=== PATIENT | male | born 1930 | race Caucasian/White ===

== ENCOUNTER 2019-06-15 16:37 | Observation (INO) | payer BC, MEDICAID ==
[~2019-06-15] VITALS: Ht 182.9 cm; Wt 86.6 kg
[2019-06-15 17:21] LABS: HEMATOCRIT 26 % (40-54); HEMOGLOBIN 8.5 G/DL (13.3-17.7); MEAN CORPUSCULAR HEMOGLOBIN 30 PG (25-34); MEAN CORPUSCULAR HGB CONC 33 G/DL (32-36); MEAN CORPUSCULAR VOLUME 92 FL (80-99); MEAN PLATELET VOLUME 9.2 FL (7.4-10.4); PLATELET COUNT 94 10^3/uL (130-400); RED CELL DISTRIBUTION WIDTH 13.4 % (10.0-14.5); WHITE BLOOD COUNT 3.5 10^3/uL (4.3-11.0)
[2019-06-15 17:22] LABS: BASOPHILS % (AUTO) 0 % (0-10); EOSINOPHILS # (AUTO) 0.3 10^3/uL (0.0-0.3); EOSINOPHILS % (AUTO) 9 % (0-10); LYMPHOCYTES # (AUTO) 1.3 X 10^3 (1.0-4.0); LYMPHOCYTES % (AUTO) 37 % (12-44); MONOCYTES # (AUTO) 0.4 X 10^3 (0.0-1.0); MONOCYTES % (AUTO) 11 % (0-12); NEUTROPHILS # (AUTO) 1.5 X 10^3 (1.8-7.8); NEUTROPHILS % (AUTO) 41 % (42-75)
--- NOTE | 2019-06-15 17:26 | ED General ---
General Chief Complaint: Altered Mental Status Stated Complaint: LETHARGY Nursing Triage Note: Family reports patient has had a decline in functioning and increase in lethargy over the last two weeks. Patient had his fentanyl patch and klonopin dosage increased at the beginning of June to control agitation and pain, but these medications were decreased on June 12 d/t lethargy. Daughter states patient is newly incontinent and has stopped feeding himself, intermittently lethargic/unresponsive. Nursing Sepsis Screen: No Definite Risk Source of Information: Patient, EMS, Family Exam Limitations: No Limitations History of Present Illness Date Seen by Provider: Jun 15, 2019 Time Seen by Provider: 17:00 Initial Comments see nurses note above. gradual decline of functioning, although intermittent. Episodes of being unresponsive/ somnulent and diminished ability to feed himself. New medications added for pain and agitation. Allergies and Home Medications Allergies Coded Allergies: acetaminophen (Verified Allergy, Unknown, 06/15/19) celecoxib (Verified Allergy, Unknown, 06/15/19) codeine (Verified Allergy, Unknown, 06/15/19) Patient Home Medication List Home Medication List Reviewed: Yes Review of Systems Review of Systems Constitutional: malaise, weakness Respiratory: No cough, No dyspnea on exertion Cardiovascular: No chest pain, No edema Gastrointestinal: No abdominal pain, No nausea, No vomiting Musculoskeletal: joint pain Skin: No change in color, No rash Psychiatric/Neurological: Denies Seizure, Denies Tremors; Weakness Past Vdnqegb-Scsdkp-Bezqnc Hx Past Med/Social Hx: Reviewed Nursing Past Med/Soc Hx Patient Social History Alcohol Use: Denies Use Recreational Drug Use: No Smoking Status: Never a Smoker 2nd Hand Smoke Exposure: No Recent Foreign Travel: No Contact w/Someone Who Travel: No Recent Infectious Disease Expo: No Recent Hopitalizations: No Physical Abuse: No Sexual Abuse: No Mistreated: No Fear: No Seasonal Allergies Seasonal Allergies: No Past Medical History Surgeries: No Respiratory: No Cardiac: Yes Hypertension Neurological: Yes Stroke Genitourinary: No (urinary retention) Gastrointestinal: Yes Gastroesophageal Reflux Musculoskeletal: Yes (Hemiplegia and hemiparesis left side) Endocrine: No HEENT: No Cancer: No Psychosocial: Yes Depression Integumentary: No Physical Exam Vital Signs Vital Signs - First Documented 06/15/19 16:48 Temp 36.2 Pulse 63 Resp 20 B/P (MAP) 137/48 (77) Pulse Ox 94 O2 Delivery Room Air Capillary Refill : Less Than 3 Seconds Height, Weight, BMI Height: '" Weight: lbs. oz. kg; 34.00 BMI Method: General Appearance: No Apparent Distress, WD/WN; No Anxious, No Chronically ill HEENT: TMs Normal, Pharynx Normal Neck: Normal Inspection, Non Tender, Supple; No JVD Respiratory: Chest Non Tender, Lungs Clear Cardiovascular: Regular Rate, Rhythm, No Edema, No Gallop, No JVD, No Murmur Gastrointestinal: No Organomegaly, Non Tender, Soft Rectal: Normal Exam, Normal Rectal Tone, Heme Positive Stool (faint) Extremity: Normal Capillary Refill, Non Tender, No Calf Tenderness Neurologic/Psychiatric: Alert, No Motor/Sensory Deficits, Normal Mood/Affect Skin: Normal Color, Warm/Dry Focused Exam Lactate Level 06/15/19 17:00: Lactic Acid Level 0.70 Lactic Acid Level Laboratory Tests Test 06/15/19 17:00 Lactic Acid Level 0.70 MMOL/L (0.50-2.00) Progress/Results/Core Measures Suspected Sepsis Recent Fever Within 48 Hours: No Infection Criteria Present: None New/Unexplained Altered Menta: Yes Sepsis Screen: No Definite Risk SIRS Temperature: Pulse: 63 Respiratory Rate: 20 Laboratory Tests 06/15/19 17:00: White Blood Count 3.5L Blood Pressure 137 /48 Mean: 77 06/15/19 17:00: Lactic Acid Level 0.70 Laboratory Tests 06/15/19 17:00: Creatinine 0.60, Platelet Count 94L, Total Bilirubin 0.2 Results/Orders Lab Results Laboratory Tests Test 06/15/19 15:00 06/15/19 17:00 06/15/19 17:35 Range/Units Beta-Hydroxybutyrate (Chem panel) 0.06 0.00-0.27 MMOL/L White Blood Count 3.5 L 4.3-11.0 10^3/uL Red Blood Count 2.83 L 4.35-5.85 10^6/uL Hemoglobin 8.5 L 13.3-17.7 G/DL Hematocrit 26 L 40-54 % Mean Corpuscular Volume 92 80-99 FL Mean Corpuscular Hemoglobin 30 25-34 PG Mean Corpuscular Hemoglobin Concent 33 32-36 G/DL Red Cell Distribution Width 13.4 10.0-14.5 % Platelet Count 94 L 130-400 10^3/uL Mean Platelet Volume 9.2 7.4-10.4 FL Neutrophils (%) (Auto) 41 L 42-75 % Lymphocytes (%) (Auto) 37 12-44 % Monocytes (%) (Auto) 11 0-12 % Eosinophils (%) (Auto) 9 0-10 % Basophils (%) (Auto) 0 0-10 % Neutrophils # (Auto) 1.5 L 1.8-7.8 X 10^3 Lymphocytes # (Auto) 1.3 1.0-4.0 X 10^3 Monocytes # (Auto) 0.4 0.0-1.0 X 10^3 Eosinophils # (Auto) 0.3 0.0-0.3 10^3/uL Basophils # (Auto) 0.0 0.0-0.1 10^3/uL Sodium Level 145 135-145 MMOL/L Potassium Level 2.7 L 3.6-5.0 MMOL/L Chloride Level 119 H 98-107 MMOL/L Carbon Dioxide Level 19 L 21-32 MMOL/L Anion Gap 7 5-14 MMOL/L Blood Urea Nitrogen 15 7-18 MG/DL Creatinine 0.60 0.60-1.30 MG/DL Estimat Glomerular Filtration Rate > 60 BUN/Creatinine Ratio 25 Glucose Level 72 70-105 MG/DL Lactic Acid Level 0.70 0.50-2.00 MMOL/L Calcium Level 5.7 *L 8.5-10.1 MG/DL Corrected Calcium 7.2 L 8.5-10.1 MG/DL Phosphorus Level 1.8 L 2.3-4.7 MG/DL Magnesium Level 1.2 L 1.6-2.4 MG/DL Total Bilirubin 0.2 0.1-1.0 MG/DL Aspartate Amino Transf (AST/SGOT) 7 5-34 U/L Alanine Aminotransferase (ALT/SGPT) 7 0-55 U/L Alkaline Phosphatase 40 40-136 U/L Total Protein 3.4 L 6.4-8.2 GM/DL Albumin 2.1 L 3.2-4.5 GM/DL Urine Color YELLOW Urine Clarity CLEAR Urine pH 6.0 5-9 Urine Specific [place] 1.025 H 1.016-1.022 Urine Protein NEGATIVE NEGATIVE Urine Glucose (UA) NEGATIVE NEGATIVE Urine Ketones NEGATIVE NEGATIVE Urine Nitrite NEGATIVE NEGATIVE Urine Bilirubin NEGATIVE NEGATIVE Urine Urobilinogen 2.0 NORMAL MG/DL Urine Leukocyte Esterase NEGATIVE NEGATIVE Urine RBC (Auto) NEGATIVE NEGATIVE Urine RBC RARE /HPF Urine WBC NONE /HPF Urine Squamous Epithelial Cells NONE /HPF Urine Crystals NONE /LPF Urine Bacteria NEGATIVE /HPF Urine Casts NONE /LPF Urine Mucus NONE /LPF Urine Culture Indicated NO My Orders Orders - ROVENSTINE,ASYA L DO Ed Iv/Invasive Line Start (06/15/19 16:47) Cbc With Automated Diff (06/15/19 16:47) Comprehensive Metabolic Panel (06/15/19 16:47) Lactic Acid Analyzer (06/15/19 16:47) Urinalysis (06/15/19 16:47) Ct Head Wo (06/15/19 16:47) Ekg Tracing (06/15/19 17:10) Continuous Ekg Monitoring (06/15/19 17:10) Lidocaine 2% (Urojet) (Xylocaine Urojet) (06/15/19 17:30) Straight Cath For Spec.-Adult (06/15/19 17:47) Fecal Occult Bedside (06/15/19 18:05) Phosphorus (06/15/19 18:07) Vitamin D 25-Hydroxy (06/15/19 18:07) Potassium Chloride (Tablet) (K Dur Table (06/15/19 18:15) Magnesium (06/15/19 18:19) Potassium Cl 10meq/50ml Ivpb (Kcl 10 Meq (06/15/19 18:45) Medications Given in ED Current Medications Medications Dose Ordered Sig/Dougie Route Start Time Stop Time Status Last Admin Dose Admin Lidocaine HCl 10 ml ONCE ONCE TOP 06/15/19 17:30 06/15/19 17:31 DC 06/15/19 17:30 10 ML Vital Signs/I&O 06/15/19 06/15/19 06/15/19 16:48 19:07 19:55 Temp 36.2 35.8 Pulse 63 58 61 Resp 20 16 20 B/P (MAP) 137/48 (77) 148/59 134/62 Pulse Ox 94 94 95 O2 Delivery Room Air Room Air Room Air Capillary Refill : Less Than 3 Seconds Blood Pressure Mean: 77 Departure Communication (Admissions) Time/Spoke to Admitting Phy: 18:30 Discussed OBS admission w Dr Guerrero, he accepts for transfer from [facility] to [place] [facility] Conversation Discussed w patients daughter who is in agreement with admission Impression Primary Impression: Change in mental status Qualified Codes: R41.82 - Altered mental status, unspecified Additional Impressions: Anemia Qualified Codes: D64.9 - Anemia, unspecified Hypokalemia Hypocalcemia Disposition: ADMITTED INPATIENT Condition: Stable Admissions Decision to Admit Reason: Admit from ER (General) Decision to Admit/Date: Jun 15, 2019 Time/Decision to Admit Time: 18:30 Departure-Patient Inst. Referrals: NO,LOCAL PHYSICIAN (PCP) Primary Care Physician ASYA CORLEY DO Jun 15, 2019 17:26
--- NOTE | 2019-06-15 17:27 | Diagnostic Imaging Report ---
PROCEDURE: CT head without contrast. TECHNIQUE: Multiple contiguous axial images were obtained through the brain without the use of intravenous contrast. Auto Exposure Controls were utilized during the CT exam to meet ALARA standards for radiation dose reduction. INDICATION: Altered mental status and lethargy. COMPARISON: No prior studies are available for comparison. FINDINGS: Study is compromised due to patient motion. Ventricles and sulci are prominent consistent with the patient's age. Periventricular hypodensity is noted consistent with senescent change. No midline shift is seen. No acute intra-axial or extra-axial hemorrhage is detected. The cisterns are patent. The visualized paranasal sinuses are clear. IMPRESSION: Cerebral atrophy and senescent changes. No acute intracranial process is detected. Dictated by: Dictated on workstation # [id number]
[2019-06-15] MEDS ORDERED: LIDOCAINE UROJET 2% GEL 10 ML PKG TOP ONE (17:30)
[2019-06-15 17:51] LABS: BILIRUBIN,URINE NEGATIVE (NEGATIVE); CLARITY,URINE CLEAR; COLOR,URINE YELLOW; GLUCOSE, URINE (UA) NEGATIVE (NEGATIVE); KETONES,URINE NEGATIVE (NEGATIVE); LEUKOCYTE ESTERASE ,URINE NEGATIVE (NEGATIVE); NITRITE,URINE NEGATIVE (NEGATIVE); PROTEIN,URINE NEGATIVE (NEGATIVE); RBC,URINE RARE /HPF
[2019-06-15 17:52] LABS: BACTERIA,URINE NEGATIVE /HPF
[2019-06-15 17:54] LABS: BUN/CREATININE RATIO 25; CARBON DIOXIDE 19 MMOL/L (21-32); CHLORIDE 119 MMOL/L (98-107); GFR ESTIMATED > 60; POTASSIUM 2.7 MMOL/L (3.6-5.0); SODIUM 145 MMOL/L (135-145)
[2019-06-15 17:55] LABS: GLUCOSE 72 MG/DL (70-105)
[2019-06-15 17:56] LABS: ALANINE AMINOTRANSFERASE 7 U/L (0-55); ALBUMIN 2.1 GM/DL (3.2-4.5); ALKALINE PHOSPHATASE 40 U/L (40-136); BILIRUBIN,TOTAL 0.2 MG/DL (0.1-1.0); CALCIUM 5.7 MG/DL (8.5-10.1); TOTAL PROTEIN 3.4 GM/DL (6.4-8.2)
[2019-06-15] MEDS ORDERED: KCL 20 MEQ TAB (K-DUR) PO ONE (18:15)
[2019-06-15] MEDS ORDERED: POTASSIUM CL 10MEQ/50ML IVPB 50 ML IV ONE (18:45)
--- NOTE | 2019-06-15 18:52 | NUR ---
Called dispatch to page out transfer at this time.
[2019-06-15 19:55] VITALS: BP 134/62
--- NOTE | 2019-06-15 19:55 | NUR ---
ARLIN PRINCE admitted to room 416-1, with an admitting diagnosis of MENTAL STATUS CHANGE, on 06/15/19 from AM via [facility], accompanied by EMS.ARLIN PRINCE introduced to surroundings, call light, bed controls, phone, TV, temperature control, lights, meal times, smoking policy, visitor policy, side rail policy, bathrooms and showers. Patient Rights given to patient in the handbook. ARLIN PRINCE verbalizes understanding that [facility] is not responsible for the loss or damage to any personal effects or valuables that are kept in the patients posession during their hospitalization.
[2019-06-15] MEDS ORDERED: POT PHOS/NA PHOS (K-PHOS NEUTRAL) PO NR (20:15)
[2019-06-15] MEDS ORDERED: KCL 20 MEQ TAB (K-DUR) PO NR (20:15)
[2019-06-15] MEDS ORDERED: CALCIUM GLUCONATE 10% INJ 4.65 MEQ in NS (IVPB) 50 ML IV NR (20:15)
[2019-06-15] MEDS ORDERED: CATHETER FLUSH 10 ML SYR IV PRN (20:30)
[2019-06-15] MEDS: MAGNESIUM 1 GM/100 ML IVPB 100 ML IV SCH ×3 (20:57→23:10)
[2019-06-15] MEDS: CATHETER FLUSH 10 ML SYR IV SCH (22:00)
[2019-06-16] VITALS: BP 147/62
[2019-06-16] MEDS: MAGNESIUM 1 GM/100 ML IVPB 100 ML IV SCH (00:30)
[2019-06-16 04:00] VITALS: BP 142/64
[2019-06-16 04:37] LABS: BASOPHILS % (AUTO) 1 % (0-10); EOSINOPHILS # (AUTO) 0.3 10^3/uL (0.0-0.3); EOSINOPHILS % (AUTO) 6 % (0-10); HEMATOCRIT 37 % (40-54); HEMOGLOBIN 12.3 G/DL (13.3-17.7); LYMPHOCYTES # (AUTO) 1.6 X 10^3 (1.0-4.0); LYMPHOCYTES % (AUTO) 39 % (12-44); MEAN CORPUSCULAR HEMOGLOBIN 29 PG (25-34); MEAN CORPUSCULAR HGB CONC 33 G/DL (32-36); MEAN CORPUSCULAR VOLUME 89 FL (80-99); MEAN PLATELET VOLUME 9.6 FL (7.4-10.4); MONOCYTES # (AUTO) 0.5 X 10^3 (0.0-1.0); MONOCYTES % (AUTO) 11 % (0-12); NEUTROPHILS # (AUTO) 1.8 X 10^3 (1.8-7.8); NEUTROPHILS % (AUTO) 44 % (42-75); PLATELET COUNT 135 10^3/uL (130-400); RED CELL DISTRIBUTION WIDTH 13.8 % (10.0-14.5); WHITE BLOOD COUNT 4.1 10^3/uL (4.3-11.0)
[2019-06-16 04:59] LABS: BUN/CREATININE RATIO 22; CALCIUM 8.5 MG/DL (8.5-10.1); CARBON DIOXIDE 22 MMOL/L (21-32); CHLORIDE 110 MMOL/L (98-107); CREATININE SERUM 0.79 MG/DL (0.60-1.30); GFR ESTIMATED > 60; GLUCOSE 98 MG/DL (70-105); MAGNESIUM 2.6 MG/DL (1.6-2.4); PHOSPHORUS 2.7 MG/DL (2.3-4.7); POTASSIUM 4.5 MMOL/L (3.6-5.0); SODIUM 140 MMOL/L (135-145)
[2019-06-16] MEDS: CATHETER FLUSH 10 ML SYR IV SCH ×2 (06:36→12:58)
[2019-06-16 08:31] VITALS: BP 151/63
[2019-06-16] MEDS ORDERED: AMLO5TAB9 PO (11:07)
[2019-06-16] MEDS ORDERED: CARB15DR OU (11:07)
[2019-06-16] MEDS ORDERED: MULT-166 PO (11:07)
[2019-06-16] MEDS ORDERED: TAMS0.4C98 PO (11:07)
[2019-06-16] MEDS ORDERED: MAG-10 PO (11:07)
[2019-06-16] MEDS ORDERED: CLOP75TA69 PO (11:07)
[2019-06-16] MEDS ORDERED: CLON0.5T PO (11:07)
[2019-06-16] MEDS ORDERED: FEN12TD TD (11:07)
[2019-06-16] MEDS ORDERED: POLY17PO6 PO (11:07)
[2019-06-16] MEDS ORDERED: NAPR220T66 PO (11:07)
[2019-06-16] MEDS ORDERED: POTA20TA15 PO (11:07)
[2019-06-16] MEDS ORDERED: FLUO10CA19 PO (11:07)
[2019-06-16] MEDS ORDERED: LOSA100T57 PO (11:07)
[2019-06-16] MEDS ORDERED: GABA-486 PO (11:07)
[2019-06-16] MEDS ORDERED: MV-M1TAB38 PO (11:07)
[2019-06-16] MEDS ORDERED: LOPE2TAB34 PO (11:07)
[2019-06-16] MEDS ORDERED: PANT40TA2 PO (11:07)
--- NOTE | 2019-06-16 11:10 | NUR ---
UPDATED MED REC WITH MAR FROM [facility] STEPHANIE WELLER
[2019-06-16 12:10] VITALS: BP 126/61
[2019-06-16] MEDS ORDERED: DICL100G31 TP (13:05)
[2019-06-16] MEDS ORDERED: LIDO700A45 TP (13:05)
--- NOTE | 2019-06-16 13:17 | Discharge Summary ---
Discharge Summary Hospital Course Problems/Dx: (1) Acute encephalopathy Status: Resolved Final Diagnosis: Acute encephalopathy Hospital Course Date of Admission: Jun 15, 2019 at 18:39 Admission Diagnosis : Acute encephalopathy Family Physician/Provider: Sunil Date of Discharge: 06/16/19 Discharge Diagnosis: Acute encephalopathy Hospital Course: Hari Laguerre is an 88yoM with PMH CVA with residual left-sided hemiparesis, chronic back and shoulder pain, who presented with altered mental status. His laboratory and imaging workup was unrevealing, but his medication review revealed that recent medication changes may have been contributing. His Fentanyl patch dose had recently been adjusted. He had also been started on Klonopin for agitation within the past month. His encephalopathy improved prior to discharge. His medication regimen was adjusted with continued Fentanyl 12 mcg patch, added Lidocaine patch and Diclofenac gel, and discontinued Klonopin. This may need to be added back at the lowest possible dose if needed by his PCP. He had several electrolyte abnormalities during his stay which will need to be monitored at his hospital follow up with Dr. Barber. Labs and Pending Lab Test: Laboratory Tests 06/15/19 15:00: Beta-Hydroxybutyrate (Chem panel) 0.06 06/15/19 17:00: White Blood Count 3.5L, Red Blood Count 2.83L, Hemoglobin 8.5L, Hematocrit 26L, Mean Corpuscular Volume 92, Mean Corpuscular Hemoglobin 30, Mean Corpuscular Hemoglobin Concent 33, Red Cell Distribution Width 13.4, Platelet Count 94L, Mean Platelet Volume 9.2, Neutrophils (%) (Auto) 41L, Lymphocytes (%) (Auto) 37, Monocytes (%) (Auto) 11, Eosinophils (%) (Auto) 9, Basophils (%) (Auto) 0, Neutrophils # (Auto) 1.5L, Lymphocytes # (Auto) 1.3, Monocytes # (Auto) 0.4, Eosinophils # (Auto) 0.3, Basophils # (Auto) 0.0, Sodium Level 145, Potassium Level 2.7L, Chloride Level 119H, Carbon Dioxide Level 19L, Anion Gap 7, Blood Urea Nitrogen 15, Creatinine 0.60, Estimat Glomerular Filtration Rate > 60, BUN/Creatinine Ratio 25, Glucose Level 72, Lactic Acid Level 0.70, Calcium Level 5.7*L, Corrected Calcium 7.2L, Phosphorus Level 1.8L, Magnesium Level 1.2L, Total Bilirubin 0.2, Aspartate Amino Transf (AST/SGOT) 7, Alanine Aminotransferase (ALT/SGPT) 7, Alkaline Phosphatase 40, Total Protein 3.4L, Albumin 2.1L, Vitamin D 25-Hydroxy [Pending] 06/15/19 17:35: Urine Color YELLOW, Urine Clarity CLEAR, Urine pH 6.0, Urine Specific [place] 1.025H, Urine Protein NEGATIVE, Urine Glucose (UA) NEGATIVE, Urine Ketones NEGATIVE, Urine Nitrite NEGATIVE, Urine Bilirubin NEGATIVE, Urine Urobilinogen 2.0, Urine Leukocyte Esterase NEGATIVE, Urine RBC (Auto) NEGATIVE, Urine RBC RARE, Urine WBC NONE, Urine Squamous Epithelial Cells NONE, Urine Crystals NONE, Urine Bacteria NEGATIVE, Urine Casts NONE, Urine Mucus NONE, Urine Culture Indicated NO 06/16/19 03:45: White Blood Count 4.1L, Red Blood Count 4.21L, Hemoglobin 12.3#L, Hematocrit 37L , Mean Corpuscular Volume 89, Mean Corpuscular Hemoglobin 29, Mean Corpuscular Hemoglobin Concent 33, Red Cell Distribution Width 13.8, Platelet Count 135, Mean Platelet Volume 9.6, Neutrophils (%) (Auto) 44, Lymphocytes (%) (Auto) 39, Monocytes (%) (Auto) 11, Eosinophils (%) (Auto) 6, Basophils (%) (Auto) 1, Neutrophils # (Auto) 1.8, Lymphocytes # (Auto) 1.6, Monocytes # (Auto) 0.5, Eosinophils # (Auto) 0.3, Basophils # (Auto) 0.0, Sodium Level 140, Potassium Level 4.5, Chloride Level 110H, Carbon Dioxide Level 22, Anion Gap 8, Blood Urea Nitrogen 17, Creatinine 0.79, Estimat Glomerular Filtration Rate > 60, BUN/Creatinine Ratio 22, Glucose Level 98, Calcium Level 8.5, Phosphorus Level 2.7, Magnesium Level 2.6H, Ionized Calcium (Measured) [Pending], Ionized Calcium pH [Pending], Ionized Calcium (Corrected) [Pending] Home Meds Active Diclofenac Sodium 100 Gm Gel..gram. 100 Gm TP BID 30 Days Lidocaine 5% Patch (Lidocaine) 1 Each Adh..patch 1 Each TP Q12H PRN MDD 2 30 Days 2 patches max for 12 hours, then 12 hours patch-free period. Reported Aleve (Naproxen Sodium) 220 Mg Tablet 220 Mg PO Q12H PRN Loperamide (Loperamide HCl) 2 Mg Tablet 2 Mg PO Q4H PRN Kamla-Lanta Liquid (Mag Hydrox/Al Hydrox/Simeth) 355 Ml Oral.susp 30 Ml PO Q6H PRN Klonopin (Clonazepam) 0.5 Mg Tablet 0.25 Mg PO HS Duragesic Patch 12MCG (Fentanyl) 12 Mcg Patch 12 Mcg TD Q72H Gabapentin 100 Mg Capsule 100 Mg PO TID Refresh Tears (Carboxymethylcellulose Sodium) 15 Ml Drops 1 Drop OU BID Potassium Chloride 20 Meq Tab.er.prt 30 Meq PO BID Fluoxetine HCl 10 Mg Capsule 30 Mg PO DAILY Protonix (Pantoprazole Sodium) 40 Mg Tablet.dr 40 Mg PO 0600 Ocuvite Eye + Multi Tablet (Mv-Mn/FA/Vit K/Lycop/Lut/Zeaxa) 1 Each Tablet 1 Tab PO DAILY Multivitamins with Minerals (Multivitamin with Minerals) 1 Each Tablet 1 Tab PO DAILY Miralax (Polyethylene Glycol 3350) 17 Gm Powd.pack 17 Gm PO DAILY Losartan Potassium 100 Mg Tablet 100 Mg PO DAILY Flomax (Tamsulosin HCl) 0.4 Mg Cap 0.4 Mg PO DAILY Plavix (Clopidogrel Bisulfate) 75 Mg Tablet 75 Mg PO DAILY Amlodipine Besylate 5 Mg Tablet 5 Mg PO DAILY Assessment/Pt Instructions Take medications as prescribed. Continue Fentanyl patch 12 mcg every [address] Barber can discontinue if possible. Stop Klonopin. Begin Lidocaine patch and Diclofenac for shoulder pain. Follow up with Dr. Barber. Discharge Instructions Discharge Diet: No Restrictions Activity as Tolerated: Yes Pneumonia Vaccine Order Indica: Yes Discharge Physical Examination General Appearance: Alert, Oriented X3, Cooperative, No Acute Distress HEENT: Atraumatic, EOMI Respiratory: Clear to Auscultation, Normal Air Movement Cardiovascular: Regular Rate, No Murmurs Abdominal: Normal Bowel Sounds, Soft, No Tenderness Extremities: No Edema Psych/Mental Status: Mood NL, Other (alert and oriented to person, place, and month, disoriented to year) Allergies: Coded Allergies: acetaminophen (Verified Allergy, Unknown, 06/15/19) celecoxib (Verified Allergy, Unknown, 06/15/19) codeine (Verified Allergy, Unknown, 06/15/19) Copy Copies To 1: GUY BARBER MD Discharge Summary Date of Admission Jun 15, 2019 at 18:39 Date of Discharge Discharge Date: Jun 16, 2019 Discharge Time: 13:11 Admission Diagnosis Acute encephalopathy Discharge Diagnosis (1) Acute encephalopathy Status: Resolved (2) Hypophosphatemia Status: Resolved (3) Hypomagnesemia Status: Resolved (4) Hypokalemia Status: Resolved (5) Hypocalcemia Status: Resolved Clinical Quality Measures DVT/VTE Risk/Contraindication: Risk Factor Score Per Nursin RFS Level Per Nursing on Admit: 4+=Very High MALORIE CHAPIN MD Jun 16, 2019 13:16
--- NOTE | 2019-06-16 14:36 | NUR ---
CM/SS discharge planning. Patient will discharge back to [facility]. They were emailed all discharge orders. Transportation time set up for 1600. Patient and Patient's daughter were updated, they will provide update to the patient's and other children. RN will provide report to the facility.
== END 2019-06-16 12:58 ==
LOC: ER FS 16:41 → 4TH 18:39 → UNDOADMOB 18:39 → 4TH 19:55 → UNDODISOB 06-16 16:30
PROVIDERS: ADMIT Internal Medicine; ATTEND Internal Medicine
DX: G93.40 Encephalopathy, unspecified (principal); G81.94 Hemiplegia, unspecified affecting left nondominant side; E87.6 Hypokalemia; E83.51 Hypocalcemia; E83.39 Other disorders of phosphorus metabolism; E83.42 Hypomagnesemia; I10 Essential (primary) hypertension; K21.9 Gastro-esophageal reflux disease without esophagitis; F32.9 Major depressive disorder, single episode, unspecified; I63.9 Cerebral infarction, unspecified; D64.9 Anemia, unspecified; Z88.5 Allergy status to narcotic agent; Z88.8 Allergy status to other drugs, medicaments and biological substances; Z79.899 Other long term (current) drug therapy; Z79.02 Long term (current) use of antithrombotics/antiplatelets
CPT/HCPCS: 36415; 51701; 70450; 80048; 80053; 81000; 82010; 82274; 82306; 82330; 83605; 83735; 84100; 85025; 93005; G0378

== ENCOUNTER → 2019-06-21 | Outpatient (CLI) | payer BC, MEDICAID ==
[~2019-06-21] MED LIST: AMLO5TAB9 PO; CARB15DR OU; CLON0.5T PO; CLOP75TA69 PO; DICL100G31 TP; FEN12TD TD; FLUO10CA19 PO; GABA-486 PO; LIDO700A45 TP; LOPE2TAB34 PO; LOSA100T57 PO; MAG-10 PO; MULT-166 PO; MV-M1TAB38 PO; NAPR220T66 PO; PANT40TA2 PO; POLY17PO6 PO; POTA20TA15 PO; TAMS0.4C98 PO
[2019-06-21 16:24] LABS: BILIRUBIN,URINE NEGATIVE (NEGATIVE); CLARITY,URINE MUCOUS; COLOR,URINE YELLOW; GLUCOSE, URINE (UA) NEGATIVE (NEGATIVE); KETONES,URINE NEGATIVE (NEGATIVE); NITRITE,URINE POSITIVE (NEGATIVE); PH,URINE 8.5 (5-9); PROTEIN,URINE 2+ (NEGATIVE)
[2019-06-21 16:25] LABS: BACTERIA,URINE LARGE /HPF; LEUKOCYTE ESTERASE ,URINE 3+ (NEGATIVE); TRIPLE PHOSPHATE CRYSTAL,UR FEW /LPF
== END ==
LOC: LAB FS 15:00
PROVIDERS: ATTEND Pediatrics
DX: R31.9 Hematuria, unspecified (principal)
CPT/HCPCS: 81000; 87077; 87088

== ENCOUNTER → 2019-06-22 | Outpatient (CLI) | payer BC, MEDICAID ==
[2019-06-22 11:49] LABS: BUN/CREATININE RATIO 21; CALCIUM 9.4 MG/DL (8.5-10.1); CARBON DIOXIDE 27 MMOL/L (21-32); CHLORIDE 105 MMOL/L (98-107); CREATININE SERUM 0.99 MG/DL (0.60-1.30); GFR ESTIMATED > 60; GLUCOSE 118 MG/DL (70-105); POTASSIUM 4.6 MMOL/L (3.6-5.0); SODIUM 141 MMOL/L (135-145)
== END ==
LOC: RAD FS 10:34
PROVIDERS: ATTEND Pediatrics
DX: E87.6 Hypokalemia (principal)
CPT/HCPCS: 36415; 80048

== ENCOUNTER 2020-03-02 07:20 | Emergency (ER) | payer MEDICARE, MEDICAID ==
[~2020-03-02] VITALS: Ht 172 cm; Wt 90.0 kg
[~2020-03-02 07:20] MED LIST changes: -FLUO10CA19 PO; +FLUO10CA30 PO; -TAMS0.4C98 PO; +TMSL.4C PO
--- OUTSIDE RECORDS SUMMARY | 2020-03-02 07:26 | XMS REPORT | Continuity of Care Document ---
Author Organization Unknown Address Unknown Phone Unavailable Allergies Active Description Code Type Severity Reaction Onset Reported/Identified Relationship to Patient Clinical Status Yes acetaminophen [id number] Yousuf g Allergy Unknown N/A 06/15/2019 Yes celecoxib [id number] Drug Allergy Unknown N/A 06/15/2019 Yes codeine [id number] Drug Allergy Unknown N/A 06/15/2019 Medications There is no data. Problems Date Dx Coded Attending Type Code Diagnosis Diagnosed By 06/16/2019 MALORIE CHAPIN MD, Ot D64. 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 42 HYPOMAGNESEMIA 06/16/2019 MALORIE CHAPIN MD Ot E83. 51 HYPOCALCEMIA 06/16/2019 MALORIE CHAPIN MD Ot E87. 6 HYPOKALEMIA 06/16/2019 MALORIE CHAPIN MD Ot F32. 9 MAJOR DEPRESSIVE DISORDER, SINGLE EPISOD 06/16/2019 MALORIE CHAPIN MD Ot G81. 94 HEMIPLEGIA, UNSPECIFIED AFFECTING LEFT N 06/16/2019 MALORIE CHAPIN MD Ot G93. 40 ENCEPHALOPATHY, UNSPECIFIED 06/16/2019 MALORIE CHAPIN MD Ot I10 ESSENTIAL (PRIMARY) HYPERTENSION 06/16/2019 MALORIE CHAPIN MD Ot I63. 9 CEREBRAL INFARCTION, UNSPECIFIED 06/16/2019 MALORIE CHAPIN MD Ot K21. 9 GASTRO-ESOPHAGEAL REFLUX DISEASE WITHOUT 06/16/2019 MALORIE CHAPIN MD Ot Z79. 02 CUSTODIAL (CURRENT) USE OF ANTITHROMBOTI 06/16/2019 MALORIE CHAPIN MD Ot Z79.899 OTHER OIL AND GAS LEASE PUMPER (CURRENT) DRUG THERAPY 06/16/2019 MALORIE CHAPIN MD Ot Z88. 5 ALLERGY STATUS TO NARCOTIC AGENT STATUS 06/16/2019 MALORIE CHAPIN MD Ot Z88. 8 ALLERGY STATUS TO OTH DRUG/MEDS/BIOL SUB 06/16/2019 MALORIE CHAPIN MD Ot D64. 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 42 HYPOMAGNESEMIA 06/16/2019 MALORIE CHAPIN MD Ot E83. 51 HYPOCALCEMIA 06/16/2019 MALORIE CHAPIN MD Ot E87. 6 HYPOKALEMIA 06/16/2019 MALORIE CHAPIN MD Ot F32. 9 MAJOR DEPRESSIVE DISORDER, SINGLE EPISOD 06/16/2019 MALORIE CHAPIN MD Ot G81. 94 HEMIPLEGIA, UNSPECIFIED AFFECTING LEFT N 06/16/2019 MALORIE CHAPIN MD Ot G93. 40 ENCEPHALOPATHY, UNSPECIFIED 06/16/2019 MALORIE CHAPIN MD Ot I10 ESSENTIAL (PRIMARY) HYPERTENSION 06/16/2019 MALORIE CHAPIN MD Ot I63. 9 CEREBRAL INFARCTION, UNSPECIFIED 06/16/2019 MALORIE CHAPIN MD Ot K21. 9 GASTRO-ESOPHAGEAL REFLUX DISEASE WITHOUT 06/16/2019 MALORIE CHAPIN MD Ot Z79. 02 OIL AND GAS LEASE PUMPER (CURRENT) USE OF ANTITHROMBOTI 06/16/2019 MALORIE CHAPIN MD Ot Z79.899 OTHER CUSTODIAL (CURRENT) DRUG THERAPY 06/16/2019 MALORIE CHAPIN MD Ot Z88. 5 ALLERGY STATUS TO NARCOTIC AGENT STATUS 06/16/2019 MALORIE CHAPIN MD Ot Z88. 8 ALLERGY STATUS TO OTH DRUG/MEDS/BIOL SUB 06/23/2019 GUY TORRES MD Ot R31.9 HEMATURIA, UNSPECIFIED 06/25/2019 GUY TORRES MD Ot E87.6 HYPOKALEMIA 07/16/2019 GUY TORRES MD, Ot R31.9 HEMATURIA, UNSPECIFIED 07/16/2019 GUY TORRES MD, Ot E87.6 HYPOKALEMIA 09/14/2019 GUY TORRES MD, Ot R31.9 HEMATURIA, UNSPECIFIED 09/14/2019 GUY TORRES MD Ot E87.6 HYPOKALEMIA 09/16/2019 GUY TORRES MD Ot R31.9 HEMATURIA, UNSPECIFIED 09/16/2019 GUY TORRES MD, Ot E87.6 HYPOKALEMIA 09/16/2019 GUY TORRES MD, Ot E87.6 HYPOKALEMIA 09/16/2019 GUY TORRES MD, Ot R31.9 HEMATURIA, UNSPECIFIED 10/07/2019 GUY TORRES MD, Ot R31.9 HEMATURIA, UNSPECIFIED Procedures There is no data. Results Test Result Range Beta-hydroxybutyric acid measurement - 1 15:00 Beta-hydroxybutyric acid measurement 0.06 mmol/L 0.00-0.27 Complete blood count (CBC) with automate d white blood cell (WBC) differential - 06/15/19 17:00 Blood leukocytes automated count (number/volume) 3.5 10*3/uL 4.3-11.0 Blood erythrocytes automated count (number/volume) 2.83 10*6/uL 4.35-5.85 Venous blood hemoglobin measurement (mass/volume) 8.5 g/dL 13.3-17.7 Blood hematocrit (volume fraction) 26 % 40-54 Automated erythrocyte mean corpuscular volume 92 [ foz_us] 80-99 Automated erythrocyte mean corpuscular h emoglobin (mass per erythrocyte) 30 pg 25-34 Automated erythrocyte mean corpuscular h emoglobin concentration measurement (mass/volume) 33 g/dL 32-36 Automated erythrocyte distribution width ratio 13. 4 % 10.0- 14.5 Automated blood platelet count (count/volume) 94 1 0*3/uL 130-400 Automated blood platelet mean volume measurement 9.2 [foz_us] 7.4-10.4 Automated blood neutrophils/100 leukocytes 41 % 42-75 Automated blood lymphocytes/100 leukocytes 37 % 12-44 Blood monocytes/100 leukocytes 11 % 0-12 Automated blood eosinophils/100 leukocytes 9 % 0-10 Automated blood basophils/100 leukocytes 0 % 0-10 Blood neutrophils automated count (number/volume) 1.5 10*3 1.8-7.8 Blood lymphocytes automated count (number/volume) 1.3 10*3 1.0-4.0 Blood monocytes automated count (number/volume) 0. 4 10*3 0.0-1.0 Automated eosinophil count 0.3 10*3/uL 0 .0-0.3 Automated blood basophil count (count/volume) 0.0 10*3/uL 0.0-0.1 Blood lactic acid measurement (moles/vol ume) - 06/15/19 17:00 Blood lactic acid measurement (moles/volume) 0.70 mmol/L 0.50-2.00 Comprehensive metabolic panel - 06/15/19 17:00 Serum or plasma sodium measurement (moles/volume) 145 mmol/L 135-145 Serum or plasma potassium measurement (moles/volume) 2.7 mmol/L 3.6-5.0 Serum or plasma chloride measurement (moles/volume) 119 mmol/L 98-107 Carbon dioxide 19 mmol/L 21-32 Serum or plasma anion gap determination (moles/volume) 7 mmol/L 5-14 Serum or plasma urea nitrogen measurement (mass/volume ) 15 mg/dL 7-18 Serum or plasma creatinine measurement (mass/volume) 0.60 mg/dL 0.60-1.30 Serum or plasma urea nitrogen/creatinine mass ratio 25 NRG Serum or plasma creatinine measurement w ith calculation of estimated glomerular filtration rate > NRG Serum or plasma glucose measurement (mass/volume) 72 mg/dL 70-105 Serum or plasma calcium measurement (mass/volume) 5.7 mg/dL 8.5-10.1 Serum or plasma total bilirubin measurement (mass/volu me) 0.2 mg/dL 0.1-1.0 Serum or plasma alkaline phosphatase jose surement (enzymatic activity/volume) 40 U/L 40-136 Serum or plasma aspartate aminotransfera se measurement (enzymatic activity/volume) 7 U/L 5-34 Serum or plasma alanine aminotransferase measurement (enzymatic activity/volume) 7 U/L 0-55 Serum or plasma protein measurement (mass/volume) 3.4 g/dL 6.4-8.2 Serum or plasma albumin measurement (mass/volume) 2.1 g/dL 3.2-4.5 CALCIUM CORRECTED 7.2 mg/dL 8.5-10.1 Magnesium - 06/15/19 17:00 Magnesium 1.2 mg/dL 1.6-2.4 Serum or plasma phosphate measurement (m ass/volume) - 06/15/19 17:00 Serum or plasma phosphate measurement (mass/volume) 1.8 mg/dL 2.3-4.7 VITAMIN D 25-HYDROXY - 06/15/19 17:00 VITAMIN D 25-HYDROXY (TOTAL) 11.3 % 3 0.0-100.0 Complete urinalysis with reflex to cultu re - 06/15/19 17:35 Urine color determination YELLOW NRG Urine clarity determination CLEAR NR G Urine pH measurement by test strip 6.0 5-9 Specific gravity of urine by test strip 1.025 1.016-1.022 Urine protein assay by test strip, semi-quantitative NEGATIVE NEGATIVE Urine glucose detection by automated test strip NE GATIVE NEGATIVE Erythrocytes detection in urine sediment by light micr oscopy NEGATIVE NEGATIVE Urine ketones detection by automated test strip NE GATIVE NEGATIVE Urine nitrite detection by test strip NEGATIVE NEGATIVE Urine total bilirubin detection by test strip NEGA TIVE NEGATIVE Urine urobilinogen measurement by automated test strip (mass/volume) 2.0 mg/dL NORMAL Urine leukocyte esterase detection by dipstick NEG ATIVE NEGATIVE Automated urine sediment erythrocyte cou nt by microscopy (number/high power field) RARE NRG Automated urine sediment leukocyte count by microscopy (number/high power field) NONE NRG Bacteria detection in urine sediment by light microsco py NEGATIVE NRG Squamous epithelial cells detection in u rine sediment by light microscopy NONE NRG Crystals detection in urine sediment by light microsco py NONE NRG Casts detection in urine sediment by light microscopy NONE NRG Mucus detection in urine sediment by light microscopy NONE NRG Complete urinalysis with reflex to culture NO NRG Complete blood count (CBC) with automate d white blood cell (WBC) differential - 06/16/19 03:45 Blood leukocytes automated count (number/volume) 4.1 10*3/uL 4.3-11.0 Blood erythrocytes automated count (number/volume) 4.21 10*6/uL 4.35-5.85 Venous blood hemoglobin measurement (mass/volume) 12.3 g/dL 13.3-17.7 Blood hematocrit (volume fraction) 37 % 40-54 Automated erythrocyte mean corpuscular volume 89 [ foz_us] 80-99 Automated erythrocyte mean corpuscular h emoglobin (mass per erythrocyte) 29 pg 25-34 Automated erythrocyte mean corpuscular h emoglobin concentration measurement (mass/volume) 33 g/dL 32-36 Automated erythrocyte distribution width ratio 13. 8 % 10.0- 14.5 Automated blood platelet count (count/volume) 135 10*3/uL 130-400 Automated blood platelet mean volume measurement 9.6 [foz_us] 7.4-10.4 Automated blood neutrophils/100 leukocytes 44 % 42-75 Automated blood lymphocytes/100 leukocytes 39 % 12-44 Blood monocytes/100 leukocytes 11 % 0-12 Automated blood eosinophils/100 leukocytes 6 % 0-10 Automated blood basophils/100 leukocytes 1 % 0-10 Blood neutrophils automated count (number/volume) 1.8 10*3 1.8-7.8 Blood lymphocytes automated count (number/volume) 1.6 10*3 1.0-4.0 Blood monocytes automated count (number/volume) 0. 5 10*3 0.0-1.0 Automated eosinophil count 0.3 10*3/uL 0 .0-0.3 Automated blood basophil count (count/volume) 0.0 10*3/uL 0.0-0.1 Whole blood basic metabolic panel - 06/01 02/17 03:45 Serum or plasma sodium measurement (moles/volume) 140 mmol/L 135-145 Serum or plasma potassium measurement (moles/volume) 4.5 mmol/L 3.6-5.0 Serum or plasma chloride measurement (moles/volume) 110 mmol/L 98-107 Carbon dioxide 22 mmol/L 21-32 Serum or plasma anion gap determination (moles/volume) 8 mmol/L 5-14 Serum or plasma urea nitrogen measurement (mass/volume ) 17 mg/dL 7-18 Serum or plasma creatinine measurement (mass/volume) 0.79 mg/dL 0.60-1.30 Serum or plasma urea nitrogen/creatinine mass ratio 22 NRG Serum or plasma creatinine measurement w ith calculation of estimated glomerular filtration rate > NRG Serum or plasma glucose measurement (mass/volume) 98 mg/dL 70-105 Serum or plasma calcium measurement (mass/volume) 8.5 mg/dL 8.5-10.1 Serum or plasma phosphate measurement (m ass/volume) - 06/16/19 03:45 Serum or plasma phosphate measurement (mass/volume) 2.7 mg/dL 2.3-4.7 Magnesium - 06/16/19 03:45 Magnesium 2.6 mg/dL 1.6-2.4 IONIZED CALCIUM (SEND OFF) - 06/16/19 03 :45 Blood ionized calcium measurement (mass/volume) 1. 22 % 1.16- 1.32 Venous blood ionized calcium measurement adjusted to pH 7.4 (moles/volume) 1.24 % 1.16-1.32 pH measurement 7.42 NRG Complete urinalysis with reflex to cultu re - 06/21/19 14:30 Urine color determination YELLOW NRG Urine clarity determination MUCOUS NR G Urine pH measurement by test strip 8.5 5-9 Specific gravity of urine by test strip 1.010 1.016-1.022 Urine protein assay by test strip, semi-quantitative 2+ NEGATIVE Urine glucose detection by automated test strip NE GATIVE NEGATIVE Erythrocytes detection in urine sediment by light micr oscopy 2+ NEGATIVE Urine ketones detection by automated test strip NE GATIVE NEGATIVE Urine nitrite detection by test strip POSITIVE NEGATIVE Urine total bilirubin detection by test strip NEGA TIVE NEGATIVE Urine urobilinogen measurement by automated test strip (mass/volume) 0.2 mg/dL NORMAL Urine leukocyte esterase detection by dipstick 3+ NEGATIVE Automated urine sediment erythrocyte cou nt by microscopy (number/high power field) [HPF] NRG Automated urine sediment leukocyte count by microscopy (number/high power field) [HPF] NRG Bacteria detection in urine sediment by light microsco py LARGE NRG Squamous epithelial cells detection in u rine sediment by light microscopy NONE NRG Crystals detection in urine sediment by light microsco py PRESENT NRG Casts detection in urine sediment by light microscopy NONE NRG Mucus detection in urine sediment by light microscopy LARGE NRG Complete urinalysis with reflex to culture YES NRG Triple phosphate crystals detection in u rine sediment by light microscopy FEW NRG Bacterial urine culture - 06/21/19 14:30 Bacterial urine culture [id number] NRG COLONY COUNT >100,000/ML NRG FTX;REPORTABLE SUSCEPTIBILITY REPORTED 06-24-19, 1 206 NRG Dirithromycin susceptibility test by dis k diffusion - 06/21/19 14:30 Gentamicin susceptibility test by minimum inhibitory c oncentration <= NRG Trimethoprim/sulfamethoxazole susceptibi lity test by minimum inhibitoryconcentration > NRG Levofloxacin susceptibility test by minimum inhibitory concentration > NRG Ampicillin susceptibility test by minimum inhibitory c oncentration <= NRG Cefazolin susceptibility test by minimum inhibitory co ncentration 8 NRG Ceftriaxone susceptibility test by minimum inhibitory concentration <= NRG Ciprofloxacin susceptibility test by minimum inhibitor y concentration > NRG Nitrofurantoin susceptibility test by tx nimum inhibitory concentration > NRG Amoxicillin and clavulanate potassium susc ORIANA < NRG Whole blood basic metabolic panel - 06/02 10/20 10:20 Serum or plasma sodium measurement (moles/volume) 141 mmol/L 135-145 Serum or plasma potassium measurement (moles/volume) 4.6 mmol/L 3.6-5.0 Serum or plasma chloride measurement (moles/volume) 105 mmol/L 98-107 Carbon dioxide 27 mmol/L 21-32 Serum or plasma anion gap determination (moles/volume) 9 mmol/L 5-14 Serum or plasma urea nitrogen measurement (mass/volume ) 21 mg/dL 7-18 Serum or plasma creatinine measurement (mass/volume) 0.99 mg/dL 0.60-1.30 Serum or plasma urea nitrogen/creatinine mass ratio 21 NRG Serum or plasma creatinine measurement w ith calculation of estimated glomerular filtration rate > NRG Serum or plasma glucose measurement (mass/volume) 118 mg/dL 70-105 Serum or plasma calcium measurement (mass/volume) 9.4 mg/dL 8.5-10.1 Encounters ACCT No. Visit Date/Time Discharge Status Pt. Type Provider Facility Loc./Unit Complaint [id number] 06/22/2019 10:34:00 23:59:59 CLS Outpatient GUY TORRES MD [facility] LAB FS E87.6 [id number] 06/21/2019 15:00:00 23:59:59 CLS Outpatient GUY TORRES MD [facility] LAB FS R31.9 [id number] 06/15/2019 18:39:00 16:30:00 DIS Inpatient MALORIE CHAPIN MD [facility] 4TH MENTAL STATUS CHANGE [id number] 03/02/2020 07:21:[address] Emergency MEEK DOSHABNAM [facility] ER FS AMS
--- NOTE | 2020-03-02 07:36 | ED General ---
General Chief Complaint: Altered Mental Status Stated Complaint: AMS Source of Information: EMS History of Present Illness Date Seen by Provider: Mar 02, 2020 Time Seen by Provider: 07:36 Initial Comments 89-year-old male brought in by EMS from the shelter for altered mental status. EMS reports that when they arrived to shelter patient was very le thargic. They checked her blood sugar and his blood sugar was 25. They gave him an amp of D50. Upon arrival to the ER patient's blood sugar had improved to the mid 100s. He is still somewhat lethargic with decreased responsiveness. 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 He is DO NOT RESUSCITATE. Very little HPI available. Allergies and Home Medications Allergies Coded Allergies: acetaminophen (Verified Allergy, Unknown, 06/15/19) celecoxib (Verified Allergy, Unknown, 06/15/19) codeine (Verified Allergy, Unknown, 06/15/19) Home Medications Amlodipine Besylate 5 Mg Tablet, 5 MG PO DAILY, (Reported) Carboxymethylcellulose Sodium 15 Ml Drops, 1 DROP OU BID, (Reported) Cephalexin 500 Mg Tablet, 500 MG PO QID Prescribed by: SHABNAM MEEK on 03/02/20 0848 Clopidogrel Bisulfate 75 Mg Tablet, 75 MG PO DAILY, (Reported) Diclofenac Sodium 100 Gm Gel..gram., 100 GM TP BID Prescribed by: MALORIE CHAPIN on 06/16/19 1305 Fentanyl 12 Mcg Patch, 12 MCG TD Q72H, (Reported) Fluoxetine HCl 10 Mg Capsule, 30 MG PO DAILY, (Reported) Gabapentin 100 Mg Capsule, 100 MG PO TID, (Reported) Lidocaine 1 Each Adh..patch, 1 EACH TP Q12H PRN for Neuropathic pain 2 patches max for 12 hours, then 12 hours patch-free period. Prescribed by: MALORIE CHAPIN on 06/16/19 1305 Loperamide HCl 2 Mg Tablet, 2 MG PO Q4H PRN for DIARRHEA, (Reported) Losartan Potassium 100 Mg Tablet, 100 MG PO DAILY, (Reported) Mag Hydrox/Al Hydrox/Simeth 355 Ml Oral.susp, 30 ML PO Q6H PRN for STOMACH UPSET, (Reported) Multivitamin with Minerals 1 Each Tablet, 1 TAB PO DAILY, (Reported) Mv-Mn/FA/Vit K/Lycop/Lut/Zeaxa 1 Each Tablet, 1 TAB PO DAILY, (Reported) Naproxen Sodium 220 Mg Tablet, 220 MG PO Q12H PRN for PAIN-MILD, (Reported) Pantoprazole Sodium 40 Mg Tablet.dr, 40 MG PO 0600, (Reported) Polyethylene Glycol 3350 17 Gm Powd.pack, 17 GM PO DAILY, (Reported) Potassium Chloride 20 Meq Tab.er.prt, 30 MEQ PO BID, (Reported) Tamsulosin HCl 0.4 Mg Cap, 0.4 MG PO DAILY, (Reported) Patient Home Medication List Home Medication List Reviewed: Yes Review of Systems Review of Systems Constitutional: No chills, No fever EENTM: no symptoms reported Respiratory: no symptoms reported Cardiovascular: no symptoms reported Gastrointestinal: no symptoms reported Genitourinary: no symptoms reported Musculoskeletal: no symptoms reported Skin: no symptoms reported Psychiatric/Neurological: See HPI Past Oysjaew-Eagscu-Jqkfcu Hx Past Med/Social Hx: Reviewed Nursing Past Med/Soc Hx Patient Social History 2nd Hand Smoke Exposure: No Recent Hopitalizations: No Physical Abuse: No Sexual Abuse: No Mistreated: No Fear: No Seasonal Allergies Seasonal Allergies: No Past Medical History Surgeries: No Respiratory: No Cardiac: Yes Hypertension Neurological: Yes Stroke Genitourinary: No (urinary retention) Gastrointestinal: Yes Gastroesophageal Reflux 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 oz. kg; 25.88 BMI Method: General Appearance: No Apparent Distress, WD/WN Respiratory: Lungs Clear, Normal Breath Sounds Cardiovascular: Regular Rate, Rhythm, Normal Peripheral Pulses Gastrointestinal: Non Tender Neurologic/Psychiatric: Other (mild lethargic, will response to pain, stimuli, becoming more alert through out exam) Progress/Results/Core Measures Suspected Sepsis SIRS Temperature: Pulse: Respiratory Rate: Laboratory Tests 03/02/20 07:23: White Blood Count 7.3 Blood Pressure / Mean: Laboratory Tests 03/02/20 07:23: Creatinine 0.87, Platelet Count 160, Total Bilirubin 0.3 Results/Orders Lab Results Laboratory Tests Test 03/02/20 07:23 72/20 07:27 03/02/20 07:55 03/02/20 08:36 Range/Units White Blood Count 7.3 4.3-11.0 10^3/uL Red Blood Count 4.29 L 4.35-5.85 10^6/uL Hemoglobin 12.5 L 13.3-17.7 G/DL Hematocrit 39 L 40-54 % Mean Corpuscular Volume 91 80-99 FL Mean Corpuscular Hemoglobin 29 25-34 PG Mean Corpuscular Hemoglobin Concent 32 32-36 G/DL Red Cell Distribution Width 14.3 10.0-14.5 % Platelet Count 160 130-400 10^3/uL Mean Platelet Volume 9.3 7.4-10.4 FL Neutrophils (%) (Auto) 77 H 42-75 % Lymphocytes (%) (Auto) 15 12-44 % Monocytes (%) (Auto) 7 0-12 % Eosinophils (%) (Auto) 1 0-10 % Basophils (%) (Auto) 0 0-10 % Neutrophils # (Auto) 5.6 1.8-7.8 X 10^3 Lymphocytes # (Auto) 1.1 1.0-4.0 X 10^3 Monocytes # (Auto) 0.5 0.0-1.0 X 10^3 Eosinophils # (Auto) 0.1 0.0-0.3 10^3/uL Basophils # (Auto) 0.0 0.0-0.1 10^3/uL Sodium Level 141 135-145 MMOL/L Potassium Level 4.7 3.6-5.0 MMOL/L Chloride Level 107 98-107 MMOL/L Carbon Dioxide Level 24 21-32 MMOL/L Anion Gap 10 5-14 MMOL/L Blood Urea Nitrogen 29 H 7-18 MG/DL Creatinine 0.87 0.60-1.30 MG/DL Estimat Glomerular Filtration Rate > 60 BUN/Creatinine Ratio 33 Glucose Level 167 H 70-105 MG/DL Calcium Level 10.2 H 8.5-10.1 MG/DL Corrected Calcium 10.9 H 8.5-10.1 MG/DL Total Bilirubin 0.3 0.1-1.0 MG/DL Aspartate Amino Transf (AST/SGOT) 16 5-34 U/L Alanine Aminotransferase (ALT/SGPT) 10 0-55 U/L Alkaline Phosphatase 58 40-136 U/L Total Protein 5.5 L 6.4-8.2 GM/DL Albumin 3.1 L 3.2-4.5 GM/DL Glucometer 147 H 70 70-110 MG/DL Urine Color YELLOW Urine Clarity CLEAR Urine pH 7.0 5-9 Urine Specific Osborn 1.015 L 1.016-1.022 Urine Protein TRACE H NEGATIVE Urine Glucose (UA) NEGATIVE NEGATIVE Urine Ketones NEGATIVE NEGATIVE Urine Nitrite POSITIVE H NEGATIVE Urine Bilirubin NEGATIVE NEGATIVE Urine Urobilinogen 0.2 < = 1.0 MG/DL Urine Leukocyte Esterase 3+ H NEGATIVE Urine RBC (Auto) TRACE H NEGATIVE Urine RBC RARE /HPF Urine WBC 50-100 H /HPF Urine Crystals NONE /LPF Urine Bacteria FEW H /HPF Urine Casts NONE /LPF Urine Mucus NEGATIVE /LPF Urine Culture Indicated YES My Orders Orders - SHABNAM MEEK DO Cbc With Automated Diff (03/02/20 07:36) Comprehensive Metabolic Panel (03/02/20 07:36) Ua Culture If Indicated (03/02/20 07:36) Accucheck Stat ONCE (03/02/20 07:36) Ct Head Wo (03/02/20 07:36) Urine Culture (03/02/20 07:55) Ceftriaxone For Iv Use (Rocephin For I (03/02/20 08:30) Medications Given in ED Current Medications Medications Dose Ordered Sig/Dougie Route Start Time Stop Time Status Last Admin Dose Admin Ceftriaxone Sodium 1000 mg/ Sterile Water 10 ml @ 200 mls/hr ONCE ONCE IV 03/02/20 08:30 03/02/20 08:32 DC 03/02/20 08:42 200 MLS/HR Vital Signs/I&O 03/02/20 07:36 Temp 36.2 Pulse 89 Resp 16 B/P (MAP) 131/62 (85) Pulse Ox 95 O2 Delivery Room Air Capillary Refill : Progress Note : Time: 09:07 Progress Note Patient became much more alert throughout his stay. Repeat blood sugar checks ensure that his blood sugars stable have a normal range. He was back to his baseline. He still has a urine consistent with urinary tract infection. We are 1 g or Rocephin and discharge him with Keflex. She'll follow up with his primary care provider in a couple days for recheck of symptoms. Patient discharged back to the shelter in stable condition Diagnostic Imaging Diagonstic Imaging: CT Comments [facility], [place] NAME: [facility] REC#: [id number] PT STATUS: REG ER : 1930 PHYSICIAN: SHABNAM MEEK DO ADMIT DATE: 03/02/20/ER FS Signed Date of Exam:03/02/20 CT HEAD WO PROCEDURE: CT head without contrast. TECHNIQUE: Multiple contiguous axial images were obtained through the brain without the use of intravenous contrast. Auto Exposure Controls were utilized during the CT exam to meet ALARA standards for radiation dose reduction. INDICATION: Altered mental status, lethargy There is generalized atrophy. There is some decreased density in the periventricular white matter of both cerebral hemispheres. There are no masses or hemorrhages. There are no extra-axial fluid collections. 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 No acute abnormalities see Departure Impression Primary Impression: Hypoglycemia Additional Impression: UTI (urinary tract infection) Qualified Codes: N30.01 - Acute cystitis with hematuria Disposition: HOME, SELF-CARE Condition: Stable Departure-Patient Inst. Referrals: GUY TORRES MD (PCP/Family) Primary Care Physician Patient Instructions: Low Blood Sugar in People Without Diabetes, Urinary Tract Infection, Adult (DC) Scripts Cephalexin (Cephalexin) 500 Mg Tablet 500 MG PO QID for 7 Days, #28 TAB 0 Refills Prov: SHABNAM MEEK DO 03/02/20 SHABNAM MEEK DO Mar 02, 2020 07:36
[2020-03-02 07:45] LABS: BASOPHILS % (AUTO) 0 % (0-10); EOSINOPHILS % (AUTO) 1 % (0-10); HEMATOCRIT 39 % (40-54); HEMOGLOBIN 12.5 G/DL (13.3-17.7); LYMPHOCYTES # (AUTO) 1.1 X 10^3 (1.0-4.0); LYMPHOCYTES % (AUTO) 15 % (12-44); MEAN CORPUSCULAR HEMOGLOBIN 29 PG (25-34); MEAN CORPUSCULAR HGB CONC 32 G/DL (32-36); MEAN CORPUSCULAR VOLUME 91 FL (80-99); MEAN PLATELET VOLUME 9.3 FL (7.4-10.4); MONOCYTES # (AUTO) 0.5 X 10^3 (0.0-1.0); MONOCYTES % (AUTO) 7 % (0-12); NEUTROPHILS # (AUTO) 5.6 X 10^3 (1.8-7.8); NEUTROPHILS % (AUTO) 77 % (42-75); PLATELET COUNT 160 10^3/uL (130-400); RED CELL DISTRIBUTION WIDTH 14.3 % (10.0-14.5); WHITE BLOOD COUNT 7.3 10^3/uL (4.3-11.0)
[2020-03-02 07:46] LABS: EOSINOPHILS # (AUTO) 0.1 10^3/uL (0.0-0.3)
[2020-03-02 08:00] LABS: BILIRUBIN,TOTAL 0.3 MG/DL (0.1-1.0); BUN/CREATININE RATIO 33; CALCIUM 10.2 MG/DL (8.5-10.1); CARBON DIOXIDE 24 MMOL/L (21-32); CHLORIDE 107 MMOL/L (98-107); CREATININE SERUM 0.87 MG/DL (0.60-1.30); GFR ESTIMATED > 60; GLUCOSE 167 MG/DL (70-105); POTASSIUM 4.7 MMOL/L (3.6-5.0); SODIUM 141 MMOL/L (135-145)
[2020-03-02 08:01] LABS: ALANINE AMINOTRANSFERASE 10 U/L (0-55); ALBUMIN 3.1 GM/DL (3.2-4.5); ALKALINE PHOSPHATASE 58 U/L (40-136); TOTAL PROTEIN 5.5 GM/DL (6.4-8.2)
--- NOTE | 2020-03-02 08:17 | Diagnostic Imaging Report ---
PROCEDURE: CT head without contrast. TECHNIQUE: Multiple contiguous axial images were obtained through the brain without the use of intravenous contrast. Auto Exposure Controls were utilized during the CT exam to meet ALARA standards for radiation dose reduction. INDICATION: Altered mental status, lethargy There is generalized atrophy. There is some decreased density in the periventricular white matter of both cerebral hemispheres. There are no masses or hemorrhages. There are no extra-axial fluid collections. 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 No acute abnormalities seen. Dictated by: Dictated on workstation # [id number]
[2020-03-02 08:21] LABS: CLARITY,URINE CLEAR; COLOR,URINE YELLOW; GLUCOSE, URINE (UA) NEGATIVE (NEGATIVE); KETONES,URINE NEGATIVE (NEGATIVE); NITRITE,URINE POSITIVE (NEGATIVE); PROTEIN,URINE TRACE (NEGATIVE)
[2020-03-02 08:22] LABS: BACTERIA,URINE FEW /HPF; BILIRUBIN,URINE NEGATIVE (NEGATIVE); LEUKOCYTE ESTERASE ,URINE 3+ (NEGATIVE); RBC,URINE RARE /HPF; WBC,URINE 50-100 /HPF
[2020-03-02] MEDS ORDERED: cefTRIAXone FOR IV USE 1,000 MG in WATER (STERILE) FOR INJECTION 10 ML IV ONE (08:30)
[2020-03-02] MEDS ORDERED: CEPH500T PO (08:48)
[2020-03-02 09:45] VITALS: BP 142/66
== END 2020-03-02 09:40 | disposition home or self-care (01) ==
LOC: EDUNIT# 07:20 → ER FS 07:21
DX: N30.01 Acute cystitis with hematuria (principal); E16.2 Hypoglycemia, unspecified; I69.354 Hemiplegia and hemiparesis following cerebral infarction affecting left non-dominant side; K21.9 Gastro-esophageal reflux disease without esophagitis; I10 Essential (primary) hypertension; Z66 Do not resuscitate; Z79.899 Other long term (current) drug therapy; Z88.6 Allergy status to analgesic agent; Z88.5 Allergy status to narcotic agent
CPT/HCPCS: 36415; 70450; 80053; 81000; 82962; 85025; 87077; 87088; 87186; 96374

== ENCOUNTER 2020-03-12 06:33 | Emergency (ER) | payer MEDICARE, MEDICAID ==
[~2020-03-12] VITALS: Ht 182.9 cm; Wt 87.0 kg
[~2020-03-12 06:33] MED LIST changes: +CEPH500T PO
--- OUTSIDE RECORDS SUMMARY | 2020-03-12 06:39 | XMS REPORT | Continuity of Care Document ---
Author Organization Unknown Address Unknown Phone Unavailable Allergies Active Description Code Type Severity Reaction Onset Reported/Identified Relationship to Patient Clinical Status Yes acetaminophen [id number] Yousuf g Allergy Unknown N/A 06/15/2019 Yes celecoxib [id number] Drug Allergy Unknown N/A 06/15/2019 Yes codeine [id number] Drug Allergy Unknown N/A 06/15/2019 Medications There [...] 06/16/2019 MALORIE CHAPIN MD Ot Z79. 02 SENIOR CARE (CURRENT) USE OF ANTITHROMBOTI 06/16/2019 MALORIE CHAPIN MD Ot Z79.899 OTHER CLIENT SUPPORT MANAGER (CURRENT) DRUG THERAPY 06/16/2019 MALORIE CHAPIN MD [...] 06/16/2019 MALORIE CHAPIN MD Ot Z79. 02 CLIENT SUPPORT MANAGER (CURRENT) USE OF ANTITHROMBOTI 06/16/2019 MALORIE CHAPIN MD Ot Z79.899 OTHER SENIOR CARE (CURRENT) DRUG THERAPY 06/16/2019 MALORIE CHAPIN MD [...] Ot R31.9 HEMATURIA, UNSPECIFIED 09/16/2019 GUY TORRES MD Ot E87.6 HYPOKALEMIA 09/16/2019 BRIAN CORRALES, GUY Garcia Ot E87.6 HYPOKALEMIA 09/16/2019 BRIAN CORRALES, GUY Garcia Ot R31.9 HEMATURIA, UNSPECIFIED 10/07/2019 BRIAN CORRALES, GUY Garcia Ot R31.9 HEMATURIA, UNSPECIFIED 03/02/2020 BRIAN CORRALES, GUY Garcia Ot R31.9 HEMATURIA, UNSPECIFIED 03/02/2020 BRIAN CORRALES, GUY Garcia Ot E87.6 HYPOKALEMIA 03/06/2020 BRIAN CORRALES, GUY Garcia Ot R31.9 HEMATURIA, UNSPECIFIED 03/06/2020 BRIAN CORRALES, GUY Garcia Ot E87.6 HYPOKALEMIA 03/08/2020 MEEK DO, SHABNAM L Ot E16.2 HYPOGLYCEMIA, UNSPECIFIED 03/08/2020 MEEK DO, SHABNAM L Ot I10 ESSENTIAL (PRIMARY) HYPERTENSION 03/08/2020 MEEK DO, SHABNAM L Ot 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 Results Test [...] culture - 06/21/19 14:30 Bacterial urine culture [id number] NRG COLONY COUNT >100,000/ML NRG FTX;REPORTABLE SUSCEPTIBILITY [...] concentration > NRG Nitrofurantoin susceptibility test by mi nimum inhibitory concentration > NRG Amoxicillin and [...] plasma calcium measurement (mass/volume) 9.4 mg/dL 8.5-10.1 Complete blood count (CBC) with automate d white blood cell (WBC) differential - 03/02/20 07:23 Blood leukocytes automated count (number/volume) 7.3 10*3/uL 4.3-11.0 Blood erythrocytes automated count (number/volume) 4.29 10*6/uL 4.35-5.85 Venous blood hemoglobin measurement (mass/volume) 12.5 g/dL 13.3-17.7 Blood hematocrit (volume fraction) 39 % 40-54 Automated erythrocyte mean corpuscular volume 91 [ foz_us] 80-99 Automated erythrocyte mean corpuscular h emoglobin (mass per erythrocyte) 29 pg 25-34 Automated erythrocyte mean corpuscular h emoglobin concentration measurement (mass/volume) 32 g/dL 32-36 Automated erythrocyte distribution width ratio 14. 3 % 10.0- 14.5 Automated blood platelet count (count/volume) 160 10*3/uL 130-400 Automated blood platelet mean volume measurement 9.3 [foz_us] 7.4-10.4 Automated blood neutrophils/100 leukocytes 77 % 42-75 Automated blood lymphocytes/100 leukocytes 15 % 12-44 Blood monocytes/100 leukocytes 7 % 0-12 Automated blood eosinophils/100 leukocytes 1 % 0-10 Automated blood basophils/100 leukocytes 0 % 0-10 Blood neutrophils automated count (number/volume) 5.6 10*3 1.8-7.8 Blood lymphocytes automated count (number/volume) 1.1 10*3 1.0-4.0 Blood monocytes automated count (number/volume) 0. 5 10*3 0.0-1.0 Automated eosinophil count 0.1 10*3/uL 0 .0-0.3 Automated blood basophil count (count/volume) 0.0 10*3/uL 0.0-0.1 Comprehensive metabolic panel - 03/02/20 07:23 Serum or plasma sodium measurement (moles/volume) 141 mmol/L 135-145 Serum or plasma potassium measurement (moles/volume) 4.7 mmol/L 3.6-5.0 Serum or plasma chloride measurement (moles/volume) 107 mmol/L 98-107 Carbon dioxide 24 mmol/L 21-32 Serum or plasma anion gap determination (moles/volume) 10 mmol/L 5-14 Serum or plasma urea nitrogen measurement (mass/volume ) 29 mg/dL 7-18 Serum or plasma creatinine measurement (mass/volume) 0.87 mg/dL 0.60-1.30 Serum or plasma urea nitrogen/creatinine mass ratio 33 NRG Serum or plasma creatinine measurement w ith calculation of estimated glomerular filtration rate > NRG Serum or plasma glucose measurement (mass/volume) 167 mg/dL 70-105 Serum or plasma calcium measurement (mass/volume) 10.2 mg/dL 8.5-10.1 Serum or plasma total bilirubin measurement (mass/volu me) 0.3 mg/dL 0.1-1.0 Serum or plasma alkaline phosphatase jose surement (enzymatic activity/volume) 58 U/L 40-136 Serum or plasma aspartate aminotransfera se measurement (enzymatic activity/volume) 16 U/L 5-34 Serum or plasma alanine aminotransferase measurement (enzymatic activity/volume) 10 U/L 0-55 Serum or plasma protein measurement (mass/volume) 5.5 g/dL 6.4-8.2 Serum or plasma albumin measurement (mass/volume) 3.1 g/dL 3.2-4.5 CALCIUM CORRECTED 10.9 mg/dL 8.5-10.1 Capillary blood glucose measurement by g lucometer (mass/volume) - 03/02/20 07:27 Capillary blood glucose measurement by glucometer (mas s/volume) 147 mg/dL 70-110 Complete urinalysis with reflex to cultu re - 03/02/20 07:55 Urine color determination YELLOW NRG Urine clarity determination CLEAR NR G Urine pH measurement by test strip 7.0 5-9 Specific gravity of urine by test strip 1.015 1.016-1.022 Urine protein assay by test strip, semi-quantitative TRACE NEGATIVE Urine glucose detection by automated test strip NE GATIVE NEGATIVE Erythrocytes detection in urine sediment by light micr oscopy TRACE NEGATIVE Urine ketones detection by automated test strip NE GATIVE NEGATIVE Urine nitrite detection by test strip POSITIVE NEGATIVE Urine total bilirubin detection by test strip NEGA TIVE NEGATIVE Urine urobilinogen measurement by automated test strip (mass/volume) 0.2 mg/dL < = 1.0 Urine leukocyte esterase detection by dipstick 3+ NEGATIVE Automated urine sediment erythrocyte cou nt by microscopy (number/high power field) RARE NRG Automated urine sediment leukocyte count by microscopy (number/high power field) [HPF] NRG Bacteria detection in urine sediment by light microsco py FEW NRG Crystals detection in urine sediment by light microsco py NONE NRG Casts detection in urine sediment by light microscopy NONE NRG Mucus detection in urine sediment by light microscopy NEGATIVE NRG Complete urinalysis with reflex to culture YES NRG Bacterial urine culture - 03/02/20 08:00 Bacterial urine culture [id number] NRG COLONY COUNT >100,000/ML NRG SUSCEPTIBILITY SUSCEPTIBILITY REPORTED 03/04 07:50 NRG Dirithromycin susceptibility test by dis k diffusion - 03/02/20 08:00 Gentamicin susceptibility test by minimum inhibitory c oncentration <= NRG Trimethoprim/sulfamethoxazole susceptibi lity test by minimum inhibitoryconcentration > NRG Levofloxacin susceptibility test by minimum inhibitory concentration > NRG Ampicillin susceptibility test by minimum inhibitory c oncentration <= NRG Cefazolin susceptibility test by minimum inhibitory co ncentration 16 NRG Ceftriaxone susceptibility test by minimum inhibitory concentration <= NRG Ciprofloxacin susceptibility test by minimum inhibitor y concentration > NRG Nitrofurantoin susceptibility test by mi nimum inhibitory concentration R NRG Amoxicillin and clavulanate potassium susc ORIANA <= NRG Capillary blood glucose measurement by g lucometer (mass/volume) - 03/02/20 08:35 Capillary blood glucose measurement by glucometer (mas s/volume) 349 mg/dL 70-110 Capillary blood glucose measurement by g lucometer (mass/volume) - 03/02/20 08:36 Capillary blood glucose measurement by glucometer (mas s/volume) 70 mg/dL 70-110 Capillary blood glucose measurement by g lucometer (mass/volume) - 03/02/20 09:12 Capillary blood glucose measurement by glucometer (mas s/volume) 62 mg/dL 70-110 Capillary blood glucose measurement by g lucometer (mass/volume) - 03/02/20 09:33 Capillary blood glucose measurement by glucometer (mas s/volume) 73 mg/dL 70-110 Encounters ACCT No. Visit Date/Time Discharge Status Pt. Type Provider Facility Loc./Unit Complaint [id number] 03/02/2020 07:21:00 09:40:00 DIS Outpatient SHABNAM MEEK DO [facility] [id number] 06/22/2019 10:34:00 23:59:59 CLS Outpatient BRIAN CORRALES, GUY riley [facility] FS E87.6 [id number] 06/21/2019 15:00:00 23:59:59 CLS Outpatient BRIAN CORRALES, GUY riley [facility] FS R31.9 [id number] 06/15/2019 18:39:00 16:30:00 DIS Inpatient TAVARES CORRALES, MALORIE Garcia [facility] 4TH MENTAL STATUS CHANGE
--- NOTE | 2020-03-12 06:52 | ED General ---
General Chief Complaint: Glucose Problems Stated Complaint: SOB History of Present Illness Date Seen by Provider: Mar 12, 2020 Time Seen by Provider: 06:48 Initial Comments Pt brought by EMS from [place] for decreased respirations. Reportedly he was only br eathing about 6 times a minute. EMS notes he had a normal respiratory rate on their arrival, and it appears to be normal now. According to review of [place], staff attempted to place O2 on him and he became combative. EMS was able to put O2 on him and he is wearing O2 currently. He has no complaints, other than to say that his 'butt hurts'. He is a DNR. Allergies and Home Medications Allergies Coded Allergies: acetaminophen (Verified Allergy, Unknown, 06/15/19) celecoxib (Verified Allergy, Unknown, 06/15/19) codeine (Verified Allergy, Unknown, 06/15/19) Home Medications Amlodipine Besylate 5 Mg Tablet, 5 MG PO DAILY, (Reported) Carboxymethylcellulose Sodium 15 Ml Drops, 1 DROP OU BID, (Reported) Cephalexin 500 Mg Tablet, 500 MG PO QID Prescribed by: SHABNAM MEEK on 03/02/20 0848 Clopidogrel Bisulfate 75 Mg Tablet, 75 MG PO DAILY, (Reported) Diclofenac Sodium 100 Gm Gel..gram., 100 GM TP BID Prescribed by: MALORIE CHAPIN on 06/16/19 1305 Fentanyl 12 Mcg Patch, 12 MCG TD Q72H, (Reported) Fluoxetine HCl 10 Mg Capsule, 30 MG PO DAILY, (Reported) Gabapentin 100 Mg Capsule, 100 MG PO TID, (Reported) Lidocaine 1 Each Adh..patch, 1 EACH TP Q12H PRN for Neuropathic pain 2 patches max for 12 hours, then 12 hours patch-free period. Prescribed by: MALORIE CHAPIN on 06/16/19 1305 Loperamide HCl 2 Mg Tablet, 2 MG PO Q4H PRN for DIARRHEA, (Reported) Losartan Potassium 100 Mg Tablet, 100 MG PO DAILY, (Reported) Mag Hydrox/Al Hydrox/Simeth 355 Ml Oral.susp, 30 ML PO Q6H PRN for STOMACH UPSET, (Reported) Multivitamin with Minerals 1 Each Tablet, 1 TAB PO DAILY, (Reported) Mv-Mn/FA/Vit K/Lycop/Lut/Zeaxa 1 Each Tablet, 1 TAB PO DAILY, (Reported) Naproxen Sodium 220 Mg Tablet, 220 MG PO Q12H PRN for PAIN-MILD, (Reported) Pantoprazole Sodium 40 Mg Tablet.dr, 40 MG PO 0600, (Reported) Polyethylene Glycol 3350 17 Gm Powd.pack, 17 GM PO DAILY, (Reported) Potassium Chloride 20 Meq Tab.er.prt, 30 MEQ PO BID, (Reported) Tamsulosin HCl 0.4 Mg Cap, 0.4 MG PO DAILY, (Reported) Patient Home Medication List Home Medication List Reviewed: Yes Review of Systems Review of Systems Constitutional: No chills, No fever EENTM: No nose congestion, No throat pain Respiratory: No cough, No short of breath Cardiovascular: No chest pain, No syncope Gastrointestinal: No abdominal pain, No nausea, No vomiting Genitourinary: No dysuria Skin: no symptoms reported Psychiatric/Neurological: Denies Headache, Denies Numbness Past Lnrkrtn-Jdqoai-Mqmhrm Hx Patient Social History Alcohol Use: Denies Use Recreational Drug Use: No 2nd Hand Smoke Exposure: No Recent Foreign Travel: No Contact w/Someone Who Travel: No Recent Hopitalizations: No Physical Abuse: No Sexual Abuse: No Mistreated: No Fear: No Seasonal Allergies Seasonal Allergies: No Past Medical History Surgeries: No Respiratory: No Cardiac: Yes Hypertension Neurological: Yes Stroke Genitourinary: No (urinary retention) Gastrointestinal: Yes Gastroesophageal Reflux 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 oz. kg; 30.00 BMI Method: General Appearance: No Apparent Distress, WD/WN Eyes: Left Eye Normal Inspection HEENT: Normal ENT Inspection Neck: Normal Inspection, Supple Respiratory: Lungs Clear, Normal Breath Sounds Cardiovascular: Regular Rate, Rhythm, No Edema Gastrointestinal: Non Tender, Soft Extremity: Normal Capillary Refill, Normal Inspection Neurologic/Psychiatric: Alert, No Motor/Sensory Deficits Skin: Normal Color, Warm/Dry Progress/Results/Core Measures Suspected Sepsis SIRS Temperature: Pulse: Respiratory Rate: Laboratory Tests 03/12/20 06:50: White Blood Count 5.3 Blood Pressure / Mean: Laboratory Tests 03/12/20 06:50: Creatinine 0.93, Platelet Count 148, Total Bilirubin 0.4 Results/Orders Lab Results Laboratory Tests Test 03/12/20 06:50 Range/Units White Blood Count 5.3 4.3-11.0 10^3/uL Red Blood Count 4.54 4.35-5.85 10^6/uL Hemoglobin 13.3 13.3-17.7 G/DL Hematocrit 41 40-54 % Mean Corpuscular Volume 89 80-99 FL Mean Corpuscular Hemoglobin 29 25-34 PG Mean Corpuscular Hemoglobin Concent 33 32-36 G/DL Red Cell Distribution Width 14.3 10.0-14.5 % Platelet Count 148 130-400 10^3/uL Mean Platelet Volume 9.2 7.4-10.4 FL Neutrophils (%) (Auto) 44 42-75 % Lymphocytes (%) (Auto) 37 12-44 % Monocytes (%) (Auto) 9 0-12 % Eosinophils (%) (Auto) 8 0-10 % Basophils (%) (Auto) 1 0-10 % Neutrophils # (Auto) 2.3 1.8-7.8 X 10^3 Lymphocytes # (Auto) 2.0 1.0-4.0 X 10^3 Monocytes # (Auto) 0.5 0.0-1.0 X 10^3 Eosinophils # (Auto) 0.4 H 0.0-0.3 10^3/uL Basophils # (Auto) 0.0 0.0-0.1 10^3/uL Sodium Level 141 135-145 MMOL/L Potassium Level 4.3 3.6-5.0 MMOL/L Chloride Level 109 H 98-107 MMOL/L Carbon Dioxide Level 27 21-32 MMOL/L Anion Gap 5 5-14 MMOL/L Blood Urea Nitrogen 15 7-18 MG/DL Creatinine 0.93 0.60-1.30 MG/DL Estimat Glomerular Filtration Rate > 60 BUN/Creatinine Ratio 16 Glucose Level 108 H 70-105 MG/DL Calcium Level 10.9 H 8.5-10.1 MG/DL Corrected Calcium 11.5 H 8.5-10.1 MG/DL Total Bilirubin 0.4 0.1-1.0 MG/DL Aspartate Amino Transf (AST/SGOT) 9 5-34 U/L Alanine Aminotransferase (ALT/SGPT) 10 0-55 U/L Alkaline Phosphatase 66 40-136 U/L Troponin I < 0.30 <0.30 NG/ML Total Protein 5.2 L 6.4-8.2 GM/DL Albumin 3.3 3.2-4.5 GM/DL My Orders Orders - QUENTIN CARDOSO MD Ekg-Prn For Chest Pain Or Rhyt (03/12/20 06:45) Cbc With Automated Diff (03/12/20 06:45) Comprehensive Metabolic Panel (03/12/20 06:45) Troponin I Fs (03/12/20 06:45) Chest 1 View Ap/Pa Only (03/12/20 06:45) Ekg Tracing (03/12/20 06:49) Vital Signs/I&O 03/12/20 06:45 Temp 35.8 Pulse 78 Resp 12 B/P (MAP) 133/49 (77) Pulse Ox 96 O2 Delivery Room Air Capillary Refill : Progress Note : Time: 07:24 Progress Note Workup unremarkable. Sats and respiratory rate have been normal. Will discharge back to [facility]. ECG Initial ECG Impression Date: Mar 12, 2020 Initial ECG Impression Time: 06:52 Initial ECG Rate: 64 Initial ECG Rhythm: Normal Sinus Comment LVH, age indeterminate inferior infarct, no acute st change EKG : EKG Time: 06:53 Departure Impression Primary Impression: Respiratory rate decreased Disposition: 01 HOME, SELF-CARE Condition: Stable/Unchanged Departure-Patient Inst. Referrals: GUY TORRES MD (PCP/Family) Primary Care Physician Patient Instructions: Shortness of Breath (Dyspnea) (DC) Add. Discharge Instructions: All discharge instructions reviewed with patient and/or family. Voiced understanding. QUENTIN CARDOSO MD Mar 12, 2020 06:52
[2020-03-12 07:00] LABS: HEMATOCRIT 41 % (40-54); HEMOGLOBIN 13.3 G/DL (13.3-17.7); MEAN CORPUSCULAR HEMOGLOBIN 29 PG (25-34); MEAN CORPUSCULAR HGB CONC 33 G/DL (32-36); MEAN CORPUSCULAR VOLUME 89 FL (80-99); WHITE BLOOD COUNT 5.3 10^3/uL (4.3-11.0)
[2020-03-12 07:01] LABS: BASOPHILS % (AUTO) 1 % (0-10); EOSINOPHILS # (AUTO) 0.4 10^3/uL (0.0-0.3); EOSINOPHILS % (AUTO) 8 % (0-10); LYMPHOCYTES % (AUTO) 37 % (12-44); MEAN PLATELET VOLUME 9.2 FL (7.4-10.4); MONOCYTES # (AUTO) 0.5 X 10^3 (0.0-1.0); MONOCYTES % (AUTO) 9 % (0-12); NEUTROPHILS # (AUTO) 2.3 X 10^3 (1.8-7.8); NEUTROPHILS % (AUTO) 44 % (42-75); PLATELET COUNT 148 10^3/uL (130-400); RED CELL DISTRIBUTION WIDTH 14.3 % (10.0-14.5)
[2020-03-12 07:18] LABS: ALANINE AMINOTRANSFERASE 10 U/L (0-55); ALBUMIN 3.3 GM/DL (3.2-4.5); ALKALINE PHOSPHATASE 66 U/L (40-136); BILIRUBIN,TOTAL 0.4 MG/DL (0.1-1.0); BUN/CREATININE RATIO 16; CALCIUM 10.9 MG/DL (8.5-10.1); CARBON DIOXIDE 27 MMOL/L (21-32); CHLORIDE 109 MMOL/L (98-107); CREATININE SERUM 0.93 MG/DL (0.60-1.30); GFR ESTIMATED > 60; GLUCOSE 108 MG/DL (70-105); POTASSIUM 4.3 MMOL/L (3.6-5.0); SODIUM 141 MMOL/L (135-145); TOTAL PROTEIN 5.2 GM/DL (6.4-8.2)
--- NOTE | 2020-03-12 07:42 | Diagnostic Imaging Report ---
EXAMINATION: Chest radiograph, portable AP view. DATE: 03/12/2020 6:56 AM hours. INDICATION: 89-year-old male, decreasing respirations. COMPARISON: None. FINDINGS: There are low lung volumes. The patient is rotated. There are also difficulties with exposure. There are atherosclerotic calcifications. There is no identified pneumothorax. There is nonspecific left basilar airspace consolidation. IMPRESSION: 1. Nonspecific left basilar airspace consolidation which may relate to pleural effusion, infiltrate, and/or atelectasis. 2. Low lung volumes. 3. Limitations of the study relating to patient positioning and difficulties with exposure. Dictated by: Dictated on workstation # [id number]
--- NOTE | 2020-03-12 08:00 | NUR ---
Updated Helena, patients daughter, on patient condition and Dr discharging him back to the skilled nursing. [place] is requesting patient be admitted if there is any possible way and that he does not wear oxygen at the skilled nursing. This RN stated we would try the patient off of the oxygen and I would ask Dr about possible admission.
--- NOTE | 2020-03-12 08:13 | NUR ---
Updated Helena, patients daughter, that the patient is maintaining 02 saturations off of the oxygen. Also updated that Dr stated that patients test results today do not warrant an admission.
--- NOTE | 2020-03-12 08:15 | NUR ---
Called [facility] to update that patient is being discharged. States they will send transportation to pick him up.
[2020-03-12 08:45] VITALS: BP 138/51
--- NOTE | 2020-03-12 08:45 | NUR ---
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
== END 2020-03-12 08:59 | disposition home or self-care (01) ==
LOC: EDUNIT# 06:33 → ER FS 06:35
DX: R06.89 Other abnormalities of breathing (principal); I10 Essential (primary) hypertension; K21.9 Gastro-esophageal reflux disease without esophagitis; F32.9 Major depressive disorder, single episode, unspecified; I69.354 Hemiplegia and hemiparesis following cerebral infarction affecting left non-dominant side; Z88.6 Allergy status to analgesic agent; Z88.5 Allergy status to narcotic agent; Z79.02 Long term (current) use of antithrombotics/antiplatelets
CPT/HCPCS: 36415; 71045; 80053; 84484; 85025; 93005

== ENCOUNTER 2020-07-25 11:27 | Inpatient (IN) | payer MEDICARE, MEDICAID ==
[~2020-07-25] VITALS: Ht 182.8 cm; Wt 99.8 kg
[~2020-07-25 11:27] MED LIST changes: +AMLO-250 PO; -AMLO5TAB9 PO; -FLUO10CA30 PO; +FLUO10CA31 PO
[2020-07-25 11:53] LABS: BASOPHILS % (AUTO) 0 % (0-10); EOSINOPHILS % (AUTO) 0 % (0-10); HEMATOCRIT 43 % (40-54); HEMOGLOBIN 13.8 G/DL (13.3-17.7); LYMPHOCYTES # (AUTO) 1.2 X 10^3 (1.0-4.0); LYMPHOCYTES % (AUTO) 8 % (12-44); MEAN CORPUSCULAR HEMOGLOBIN 29 PG (25-34); MEAN CORPUSCULAR HGB CONC 32 G/DL (32-36); MEAN CORPUSCULAR VOLUME 90 FL (80-99); MEAN PLATELET VOLUME 9.6 FL (7.4-10.4); MONOCYTES # (AUTO) 1.5 X 10^3 (0.0-1.0); MONOCYTES % (AUTO) 9 % (0-12); NEUTROPHILS # (AUTO) 12.6 X 10^3 (1.8-7.8); NEUTROPHILS % (AUTO) 82 % (42-75); PLATELET COUNT 162 10^3/uL (130-400); WHITE BLOOD COUNT 15.5 10^3/uL (4.3-11.0)
[2020-07-25 12:13] LABS: POTASSIUM 4.3 MMOL/L (3.6-5.0); SODIUM 146 MMOL/L (135-145)
[2020-07-25 12:14] LABS: ALANINE AMINOTRANSFERASE 12 U/L (0-55); ALBUMIN 3.1 GM/DL (3.2-4.5); ALKALINE PHOSPHATASE 81 U/L (40-136); BILIRUBIN,TOTAL 0.6 MG/DL (0.1-1.0); BUN/CREATININE RATIO 25; CALCIUM 11.8 MG/DL (8.5-10.1); CARBON DIOXIDE 27 MMOL/L (21-32); CHLORIDE 112 MMOL/L (98-107); GFR ESTIMATED 48; GLUCOSE 134 MG/DL (70-105); MAGNESIUM 2.3 MG/DL (1.6-2.4)
[2020-07-25 12:24] LABS: BILIRUBIN,URINE NEGATIVE (NEGATIVE); CLARITY,URINE CLOUDY; COLOR,URINE YELLOW; GLUCOSE, URINE (UA) NEGATIVE (NEGATIVE); KETONES,URINE NEGATIVE (NEGATIVE); LEUKOCYTE ESTERASE ,URINE 3+ (NEGATIVE); NITRITE,URINE NEGATIVE (NEGATIVE); PH,URINE 5.5 (5-9); PROTEIN,URINE TRACE (NEGATIVE)
[2020-07-25 12:25] LABS: BACTERIA,URINE MODERATE /HPF; RBC,URINE >100 /HPF; WBC,URINE >100 /HPF
[2020-07-25 12:48] LABS: BAND NEUTROPHILS 4 %; BASOPHILS % (MANUAL) 0 %; EOSINOPHILS % (MANUAL) 0 %; LYMPHOCYTES % (MANUAL) 11 %; METAMYELOCYTES % 1 %; MONOCYTES % (MANUAL) 17 %; NEUTROPHILS % (MANUAL) 67 %; RBC MORPH NORMAL
--- NOTE | 2020-07-25 13:01 | Diagnostic Imaging Report ---
PROCEDURE: CT head without contrast. TECHNIQUE: Multiple contiguous axial images were obtained through the brain without the use of intravenous contrast. Auto Exposure Controls were utilized during the CT exam to meet ALARA standards for radiation dose reduction. INDICATION: Shortness of breath, confusion. COMPARISON: 03/02/2020. FINDINGS: Cerebral cortical atrophy and white matter small vessel sequelae as well as atherosclerotic calcifications are chronic findings. There is no intracranial hemorrhage. Prominence of the extra-axial CSF spaces along the bifrontal convexities is chronic. No acute extra-axial fluid collection. No findings of hemorrhage. No focal or generalized cerebral edema. No evidence for an elevation of the intracranial pressures. The orbits, sinuses, and calvarium appear nonacute. IMPRESSION: Stable chronic senescent findings. No hemorrhage, edema, or acute appearing abnormalities. Dictated by: Dictated on workstation # [id number]
[2020-07-25 13:02] LABS: LIPASE 11 U/L (8-78)
--- NOTE | 2020-07-25 13:02 | Diagnostic Imaging Report ---
HISTORY: Shortness of breath, confusion, and chest pain. COMPARISON: 03/12/2020. TECHNIQUE: Frontal view of the chest. FINDINGS: There is airspace opacity in the left lung base which appears improved compared to the prior exam. Lung volumes remain low. The cardiac silhouette is unchanged in size. There is aortic atherosclerosis. No pneumothorax is seen. There is diffuse osteopenia. There are advanced degenerative changes in the shoulders bilaterally. IMPRESSION: Airspace opacity in the left lung base appears improved compared to 03/12/2020 and may represent atelectasis. Lung volumes are low. Dictated by: Dictated on workstation # [id number]
[2020-07-25] MEDS ORDERED: NS 100 ML (IVPB) BAG IV ONE (13:15)
[2020-07-25] MEDS ORDERED: IOHEXOL 350 MG/ML 100 ML (OMNIPAQUE 350) VIAL IV ONE (13:15)
[2020-07-25] MEDS ORDERED: HOLD METFORMIN - RECEIVED CONTRAST 20 ML VIAL IV SCH (13:15)
[2020-07-25] MEDS ORDERED: CATHETER FLUSH 10 ML SYR IV PRN ×2 (13:15→16:15)
--- NOTE | 2020-07-25 13:16 | Diagnostic Imaging Report ---
PROCEDURE: CT abdomen and pelvis with contrast. TECHNIQUE: Multiple contiguous axial images were obtained through the abdomen and pelvis after administration of intravenous contrast. Auto Exposure Controls were utilized during the CT exam to meet ALARA standards for radiation dose reduction. All CT scans use one or more of the following dose optimizing techniques: automated exposure control, MA and/or KvP adjustment based on patient size and exam type or iterative reconstruction. INDICATION: Abdominal distention, possible small bowel obstruction. COMPARISON: None. FINDINGS: The lung bases demonstrate motion artifact and atelectasis. The heart is mildly large. There is minimal pericardial fluid without anisha effusion seen. There is moderate aortic atherosclerosis. There is mild focal ectasia of the infrarenal abdominal aorta measuring up to 2.8 cm. The liver demonstrates no focal lesions. The spleen has a heterogeneous enhancement, likely from perfusion artifact. The pancreas is unremarkable. The left adrenal gland appears normal. 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 There is an obstructing calculus at the right ureterovesicular junction measuring 4 mm. The left kidney has a simple-appearing 2 cm renal cyst. There is no hydronephrosis or obstructing stone. A Parra catheter is in the bladder. The bowel loops are nondistended without obstruction. The appendix is normal. There is diverticulosis of the distal colon without diverticulitis. No free fluid or free air is seen. There are fat-containing inguinal hernias bilaterally without bowel involvement. There is diffuse osteopenia with advanced multilevel degenerative changes. There is compression deformity of T11 which appears chronic. IMPRESSION: 1. Obstructing 4 mm calculus in the distal right ureterovesicular junction, causing moderate right hydroureteronephrosis. 2. No bowel obstruction. Dictated by: Dictated on workstation # [id number]
[2020-07-25] MEDS ORDERED: cefTRIAXone FOR IV USE 1,000 MG in WATER (STERILE) FOR INJECTION 10 ML IV ONE (13:30)
--- NOTE | 2020-07-25 13:33 | ED General ---
General Chief Complaint: Altered Mental Status Stated Complaint: LETHARGY Nursing Triage Note: long-term staff reports patient has not been eating or drinking well for several days, states patient is more lethargic than normal today. Nursing Sepsis Screen: No Definite Risk Source of Information: Patient, EMS History of Present Illness Date Seen by Provider: Jul 25, 2020 Time Seen by Provider: 12:05 Initial Comments Patient is an 89-year-old fdc patient presents with increased confusion from baseline. Patient also has lower abdominal pain with some discomfort on physical exam. Patient is alert and oriented to person but is otherwise confused and is somewhat somnolent during exam limiting history. Timing/Duration: Other (unknown) Severity: Moderate Associated Systoms: Cough, Other Allergies and Home Medications Allergies Coded Allergies: acetaminophen (Verified Allergy, Unknown, 06/15/19) celecoxib (Verified Allergy, Unknown, 06/15/19) codeine (Verified Allergy, Unknown, 06/15/19) Home Medications Amlodipine Besylate 5 Mg Tablet, 5 MG PO DAILY, (Reported) Carboxymethylcellulose Sodium 15 Ml Drops, 1 DROP OU BID, (Reported) Cephalexin 500 Mg Tablet, 500 MG PO QID Prescribed by: SHABNAM MEEK on 03/02/20 0848 Clopidogrel Bisulfate 75 Mg Tablet, 75 MG PO DAILY, (Reported) Diclofenac Sodium 100 Gm Gel..gram., 100 GM TP BID Prescribed by: MALORIE CHAPIN on 06/16/19 1305 Fentanyl 12 Mcg Patch, 12 MCG TD Q72H, (Reported) Fluoxetine HCl 10 Mg Capsule, 30 MG PO DAILY, (Reported) Gabapentin 100 Mg Capsule, 100 MG PO TID, (Reported) Lidocaine 1 Each Adh..patch, 1 EACH TP Q12H PRN for Neuropathic pain 2 patches max for 12 hours, then 12 hours patch-free period. Prescribed by: MALORIE CHAPIN on 06/16/19 1305 Loperamide HCl 2 Mg Tablet, 2 MG PO Q4H PRN for DIARRHEA, (Reported) Losartan Potassium 100 Mg Tablet, 100 MG PO DAILY, (Reported) Mag Hydrox/Al Hydrox/Simeth 355 Ml Oral.susp, 30 ML PO Q6H PRN for STOMACH UPSET, (Reported) Multivitamin with Minerals 1 Each Tablet, 1 TAB PO DAILY, (Reported) Mv-Mn/FA/Vit K/Lycop/Lut/Zeaxa 1 Each Tablet, 1 TAB PO DAILY, (Reported) Naproxen Sodium 220 Mg Tablet, 220 MG PO Q12H PRN for PAIN-MILD, (Reported) Pantoprazole Sodium 40 Mg Tablet.dr, 40 MG PO 0600, (Reported) Polyethylene Glycol 3350 17 Gm Powd.pack, 17 GM PO DAILY, (Reported) Potassium Chloride 20 Meq Tab.er.prt, 30 MEQ PO BID, (Reported) Tamsulosin HCl 0.4 Mg Cap, 0.4 MG PO DAILY, (Reported) Patient Home Medication List Home Medication List Reviewed: Yes Review of Systems Review of Systems Constitutional: see HPI EENTM: see HPI Respiratory: see HPI Cardiovascular: see HPI Gastrointestinal: see HPI Genitourinary: see HPI Musculoskeletal: see HPI Skin: see HPI Psychiatric/Neurological: See HPI, Anxiety Hematologic/Lymphatic: See HPI Immunological/Allergic: see HPI All Other Systems Reviewed Negative Unless Noted: Yes Past Tqavqfr-Juevld-Hcklwo Hx Past Med/Social Hx: Reviewed Nursing Past Med/Soc Hx Patient Social History Alcohol Use: Denies Use Recreational Drug Use: No Smoking Status: Never a Smoker 2nd Hand Smoke Exposure: No Recent Foreign Travel: No Contact w/Someone Who Travel: No Recent Infectious Disease Expo: No Recent Hopitalizations: No Seasonal Allergies Seasonal Allergies: No Past Medical History Surgeries: No Respiratory: No Cardiac: Yes Hypertension Neurological: Yes Stroke Genitourinary: No (urinary retention) Gastrointestinal: Yes Gastroesophageal Reflux 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 oz. 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 Norm as Tested, Other Skin: Normal Color Focused Exam Sepsis Stage: Ruled Out Progress/Results/Core Measures Suspected Sepsis Recent Fever Within 48 Hours: No Infection Criteria Present: None New/Unexplained Altered Menta: Yes Sepsis Screen: No Definite Risk SIRS Temperature: Pulse: 90 Respiratory Rate: 16 Laboratory Tests 07/25/20 11:40: White Blood Count 15.5H Blood Pressure 131 /60 Mean: 83 Laboratory Tests 07/25/20 11:40: Creatinine 1.40H, Platelet Count 162, Total Bilirubin 0.6 Results/Orders Lab Results Laboratory Tests Test 07/25/20 11:40 07/25/20 12:10 Range/Units White Blood Count 15.5 H 4.3-11.0 10^3/uL Red Blood Count 4.74 4.35-5.85 10^6/uL Hemoglobin 13.8 13.3-17.7 G/DL Hematocrit 43 40-54 % Mean Corpuscular Volume 90 80-99 FL Mean Corpuscular Hemoglobin 29 25-34 PG Mean Corpuscular Hemoglobin Concent 32 32-36 G/DL Red Cell Distribution Width 14.0 10.0-14.5 % Platelet Count 162 130-400 10^3/uL Mean Platelet Volume 9.6 7.4-10.4 FL Immature Granulocyte % (Auto) 1 % Neutrophils (%) (Auto) 82 H 42-75 % Lymphocytes (%) (Auto) 8 L 12-44 % Monocytes (%) (Auto) 9 0-12 % Eosinophils (%) (Auto) 0 0-10 % Basophils (%) (Auto) 0 0-10 % Neutrophils # (Auto) 12.6 H 1.8-7.8 X 10^3 Lymphocytes # (Auto) 1.2 1.0-4.0 X 10^3 Monocytes # (Auto) 1.5 H 0.0-1.0 X 10^3 Eosinophils # (Auto) 0.0 0.0-0.3 10^3/uL Basophils # (Auto) 0.0 0.0-0.1 10^3/uL Immature Granulocyte # (Auto) 0.1 0.0-0.1 10^3/uL Neutrophils % (Manual) 67 % Lymphocytes % (Manual) 11 % Monocytes % (Manual) 17 % Eosinophils % (Manual) 0 % Basophils % (Manual) 0 % Metamyelocytes % 1 % Band Neutrophils 4 % Blood Morphology Comment NORMAL Sodium Level 146 H 135-145 MMOL/L Potassium Level 4.3 3.6-5.0 MMOL/L Chloride Level 112 H 98-107 MMOL/L Carbon Dioxide Level 27 21-32 MMOL/L Anion Gap 7 5-14 MMOL/L Blood Urea Nitrogen 35 H 7-18 MG/DL Creatinine 1.40 H 0.60-1.30 MG/DL Estimat Glomerular Filtration Rate 48 BUN/Creatinine Ratio 25 Glucose Level 134 H 70-105 MG/DL Calcium Level 11.8 H 8.5-10.1 MG/DL Corrected Calcium 12.5 H 8.5-10.1 MG/DL Magnesium Level 2.3 1.6-2.4 MG/DL Total Bilirubin 0.6 0.1-1.0 MG/DL Aspartate Amino Transf (AST/SGOT) 9 5-34 U/L Alanine Aminotransferase (ALT/SGPT) 12 0-55 U/L Alkaline Phosphatase 81 40-136 U/L Troponin I < 0.30 <0.30 NG/ML Total Protein 6.0 L 6.4-8.2 GM/DL Albumin 3.1 L 3.2-4.5 GM/DL Lipase 11 8-78 U/L Urine Color YELLOW Urine Clarity CLOUDY Urine pH 5.5 5-9 Urine Specific Jay 1.025 H 1.016-1.022 Urine Protein TRACE H NEGATIVE Urine Glucose (UA) NEGATIVE NEGATIVE Urine Ketones NEGATIVE NEGATIVE Urine Nitrite NEGATIVE NEGATIVE Urine Bilirubin NEGATIVE NEGATIVE Urine Urobilinogen 0.2 < = 1.0 MG/DL Urine Leukocyte Esterase 3+ H NEGATIVE Urine RBC (Auto) 3+ H NEGATIVE Urine RBC >100 H /HPF Urine WBC >100 H /HPF Urine Crystals NONE /LPF Urine Bacteria MODERATE H /HPF Urine Casts NONE /LPF Urine Mucus NEGATIVE /LPF Urine Culture Indicated YES My Orders Orders - MARIANNA SEQUEIRA DO Cbc With Automated Diff (07/25/20 11:40) Comprehensive Metabolic Panel (07/25/20 11:40) Ekg-Prn For Chest Pain Or Rhyt (07/25/20 11:40) Troponin I Fs (07/25/20 11:40) Chest 1 View Ap/Pa Only (07/25/20 11:40) Lipase (07/25/20 11:40) Urinalysis (07/25/20 11:40) Ct Head Wo (07/25/20 11:40) Ammonia (07/25/20 11:40) Magnesium (07/25/20 11:40) Manual Differential (07/25/20 11:40) Ct Abdomen/Pelvis W (07/25/20 12:18) Urine Culture (07/25/20 12:10) Iohexol Injection (Omnipaque 350 Mg/Ml 1 (07/25/20 13:15) Received Contrast (Hold Metformin- Contr (07/25/20 13:15) Sodium Chloride Flush (Catheter Flush Sy (07/25/20 13:15) Ns (Ivpb) (Sodium Chloride 0.9% Ivpb Bag (07/25/20 13:15) Ceftriaxone For Iv Use (Rocephin For I (07/25/20 13:30) Lactic Acid Analyzer (07/25/20 13:17) Blood Culture (07/25/20 13:17) Medications Given in ED Current Medications Medications Dose Ordered Sig/Dougie Route Start Time Stop Time Status Last Admin Dose Admin Iohexol 75 ml ONCE ONCE IV 07/25/20 13:15 07/25/20 13:16 DC 07/25/20 13:09 75 ML Sodium Chloride 10 ml NEEDED PRN IV 07/25/20 13:15 07/25/20 13:09 10 ML Sodium Chloride 100 ml ONCE ONCE IV 07/25/20 13:15 07/25/20 13:16 DC 07/25/20 13:09 80 ML Vital Signs/I&O 07/25/20 11:41 Temp 36.5 Pulse 90 Resp 16 B/P (MAP) 131/60 (83) Pulse Ox 98 O2 Delivery Nasal Cannula O2 Flow Rate 3.00 Capillary Refill : Less Than 3 Seconds Blood Pressure Mean: 83 Departure Communication (Admissions) CT head: No acute intracranial disease per radiology report CT abdomen and pelvis: Distal left ureteral stone with moderate hydronephrosis per radiology report Patient with UTI, encephalopathy with obstructing distal left ureteral stone. IV fluids, antibiotics given. Patient will transfer to closest hospital with urology availability. Vital signs remained stable throughout ED stay. Impression Primary Impression: Acute encephalopathy Additional Impressions: Urinary tract infection Ureteral stone with hydronephrosis Disposition: XF SHT-TRM HOSP Condition: Stable Admissions Decision to Admit Reason: Admit from ER (General) Departure-Patient Inst. Decision time for Depature: 13:00 Referrals: GUY TORRES MD (PCP/Family) Primary Care Physician MARIANNA SEQUEIRA DO Jul 25, 2020 13:33
[2020-07-25 15:22] LABS: AMMONIA 38 UMOL/L (11-32)
[2020-07-25 16:07] VITALS: BP 171/64
[2020-07-25] MEDS ORDERED: TMSL.4C PO (16:15)
[2020-07-25] MEDS ORDERED: MEMA10TA57 PO (16:15)
[2020-07-25] MEDS ORDERED: fentaNYL INJECTION 100 MCG/2 ML AMP IV PRN (16:15)
[2020-07-25] MEDS ORDERED: CNC1KV IM (16:15)
[2020-07-25] MEDS ORDERED: POLY17PO6 PO (16:15)
[2020-07-25] MEDS ORDERED: SERT50TA9 PO (16:15)
[2020-07-25] MEDS ORDERED: ONDANSETRON 4 MG/2 ML (SDV) Z0FRAN IV PRN (16:15)
[2020-07-25] MEDS ORDERED: FEN12TD TD (16:15)
[2020-07-25] MEDS ORDERED: POTA10TA36 PO (16:15)
[2020-07-25] MEDS ORDERED: TRAM50TA3 PO ×2 (16:15)
[2020-07-25] MEDS ORDERED: BISA10SU8 RC (16:15)
--- NOTE | 2020-07-25 16:25 | NUR ---
MED REC WAS ENTERED USING THE ORDER SUMMARY REPORT FROM [facility] IN [place] I CALLED THE FACILITY AND GOT THE FOLLOWING INFORMATION: CYANOCOBALAMIN WAS LAST ADMINISTERED ON 07-12-2020 FENTANYL PATCH WAS LAST APPLIED 07-24-2020
[2020-07-25] MEDS: NS IV 1000 ML 1,000 ML IV SCH ×2 (16:42→23:48)
--- NOTE | 2020-07-25 17:45 | NUR ---
FENTANYL PATCH ON PT RIGHT ARM REMOVED PER DR CHAPIN ORDERS. PATCH WASTED WITH ASHLEY TARIQ RN
[2020-07-25] MEDS: cefTRIAXone FOR IV USE 2,000 MG in WATER (STERILE) FOR INJECTION 20 ML IV SCH (18:06)
[2020-07-25] MEDS: TAMSULOSIN 0.4 MG (FLOMAX) CAP PO SCH (18:06)
[2020-07-25 18:37] VITALS: BP 171/64
[2020-07-25 19:11] VITALS: BP 172/76
--- NOTE | 2020-07-25 19:44 | CONSULTATION REPORT ---
DATE OF SERVICE: 07/25/2020 ATTENDING PHYSICIAN: Dr. Gomez. HISTORY: A patient is a very poor historian, unable to obtain history from him. Most of the history obtained from the records and the nursing staff. This is an 89-year-old white man who is not feeling well in the past few days at the assisted and then became worse today, especially neurologically and presented to the emergency room in [place] and has not been eating or drinking well for several days, more lethargic with increased confusion. He was found to have a significant UTI as well as a [address] scan causing moderate hydronephrosis located in the right UV junction. A CT scan of the head was negative. He was subsequently transferred and admitted to our institution. IMPRESSION: Urosepsis and a left distal ureteral stone with moderate hydro. RECOMMENDATIONS: Treat the urosepsis. Suggest for the time being on Rocephin pending culture results. IV hydration, strain all urine, continue the Flomax. I would hold the clopidogrel, and any other blood thinner just in case of surgical intervention. We will obtain a KUB to see if we can see the stone and follow it up by KUBs. We will take one day at a time as long as it does not become real septic and negative effect. If he has not passed the stone by Friday and he is in better shape to sustain a surgical procedure, we will proceed with surgery on Friday. Thank you for letting me participate in the care of this patient. We will follow with you. Job ID: [id number] DocumentID: [id number] Dictated Date: 07/25/2020 17:29:43 Packaging Tech Date: 07/25/2020 19:44:37 Dictated By: CHERYL WASHINGTON MD
--- NOTE | 2020-07-25 20:47 | History & Physical-Hospitalist ---
History of Present Illness HPI/Chief Complaint Hari Laguerre is an 89 year old male with PMH HTN, CVA, GERD, depression, dementia, chronic pain, who presented with altered mental status. He lives at a shelter. He is unable to provide any history due to his encephalopathy. The history was obtained from the ER physician. Source: RN/MD Exam Limitations: clinical condition Date Seen 07/25/20 Time Seen by a Provider: 17:15 Attending Physician Malorie Gomez MD PCP Mo Barber MD Referring Physician Date of Admission Jul 25, 2020 at 15:50 Home Medications & Allergies Home Medications Reviewed patient Home Medication Reconciliation performed by pharmacy medication reconciliations brewery technician and/or nursing. Patients Allergies have been reviewed. Allergies Allergies Coded Allergies acetaminophen (Verified Allergy, Unknown, 06/15/19) celecoxib (Verified Allergy, Unknown, 06/15/19) codeine (Verified Allergy, Unknown, 06/15/19) Past Zmvqojt-Lgdurq-Vawvep Hx Past Med/Social Hx: Reviewed Nursing Past Med/Soc Hx Patient Social History Alcohol Use: Denies Use Recreational Drug Use: No Smoking Status: Never a Smoker 2nd Hand Smoke Exposure: No Recent Foreign Travel: No Contact w/other who traveled: No Recent Hopitalizations: No Recent Infectious Disease Expo: Yes Seasonal Allergies Seasonal Allergies: No Past Medical History Cardiac: Hypertension Neurological: Stroke Gastrointestinal: Gastroesophageal Reflux Psychosocial: Depression Review of Systems ROS-Unable to Obtain: encephalopathic Constitutional: see HPI Physical Exam Physical Exam Vital Signs Vital Signs - First Documented 07/25/20 11:41 Temp 36.5 Pulse 90 Resp 16 B/P (MAP) 131/60 (83) Pulse Ox 98 O2 Delivery Nasal Cannula O2 Flow Rate 3.00 Capillary Refill : Less Than 3 Seconds Height, Weight, BMI Height: '" Weight: lbs. oz. kg; 29.86 BMI Method: General Appearance: No Apparent Distress, Chronically ill HEENT: PERRL/EOMI, Pharynx Normal Neck: Normal Inspection, Supple Respiratory: Lungs Clear, Normal Breath Sounds, No Respiratory Distress Cardiovascular: Regular Rate, Rhythm, No Edema, No Murmur Gastrointestinal: Normal Bowel Sounds, Soft Extremity: Normal Inspection, No Pedal Edema Neurologic/Psychiatric: Other (obtunded, opens eyes and withdraws to pain) Skin: Normal Color, Warm/Dry Results Results/Procedures Labs Laboratory Tests 07/25/20 11:40 Patient resulted labs reviewed. Imaging: Reviewed Imaging Report Assessment/Plan Admission Diagnosis Sepsis due to UTI Admission Status: Inpatient Order (span 2 midnights) Reason for Inpatient Admission: Obstructing ureteral stone Assessment and Plan Sepsis due to UTI Septic encephalopathy Ureteral stone Hydronephrosis SIRS+ with leukocytosis and tachycardia UA consistent with UTI Urine culture pending CT heard unremarkable Started on Rocephin Lactic acid normal Blood cultures pending CT Abdomen revealed 4 mm obstructing stone Urology consulted, appreciate assistance Flomax Strain urine IV fluids HTN GERD Depression Dementia History of CVA Continue home meds Chronic pain Hold sedating meds DVT Prophylaxis: Lovenox Diagnosis/Problems Diagnosis/Problems (1) Sepsis due to urinary tract infection Status: Acute (2) Ureteral stone with hydronephrosis Status: Acute (3) Acute encephalopathy Status: Acute Clinical Quality Measures DVT/VTE Risk/Contraindication: Risk Factor Score Per Nursin RFS Level Per Nursing on Admit: 3=High MALORIE GOMEZ MD Jul 25, 2020 20:47
[2020-07-25] MEDS: ARTIFICAL TEARS 0.4 ML UNIT DOSE (REFRESH PLUS) OU SCH (20:48)
[2020-07-25] MEDS: MEMANTINE 10 MG (NAMENDA) TABLET PO SCH (20:48)
[2020-07-25] MEDS ORDERED: NON-FORMULARY MEDICATION 1 EA EA (Carboxymethylcellulose Sodium (Refresh Tears) 1 DROP) OU SCH (21:00)
[2020-07-25] MEDS ORDERED: ENOXAPARIN 40 MG/0.4 ML (LOVENOX) SYR SC SCH (21:00)
[2020-07-25 23:53] VITALS: BP 179/73
[2020-07-26 04:27] VITALS: BP 174/79
[2020-07-26] MEDS: NS IV 1000 ML 1,000 ML IV SCH (05:43)
[2020-07-26] MEDS: MULTIVIT W/MINERALS TAB (THERAGRAN M) PO SCH (06:05)
[2020-07-26 06:17] LABS: BASOPHILS % (AUTO) 0 % (0-10); EOSINOPHILS % (AUTO) 0 % (0-10); HEMATOCRIT 42 % (40-54); LYMPHOCYTES # (AUTO) 0.9 10^3/uL (1.0-4.0); LYMPHOCYTES % (AUTO) 8 % (12-44); MEAN CORPUSCULAR HEMOGLOBIN 29 pg (25-34); MEAN CORPUSCULAR HGB CONC 31 g/dL (32-36); MEAN CORPUSCULAR VOLUME 94 fL (80-99); MONOCYTES # (AUTO) 0.9 10^3/uL (0.0-1.0); MONOCYTES % (AUTO) 8 % (0-12); NEUTROPHILS # (AUTO) 8.9 10^3/uL (1.8-7.8); NEUTROPHILS % (AUTO) 82 % (42-75); PLATELET COUNT 150 10^3/uL (130-400); WHITE BLOOD COUNT 10.8 10^3/uL (4.3-11.0)
[2020-07-26 06:29] LABS: ALBUMIN 3.1 GM/DL (3.2-4.5); CHLORIDE 115 MMOL/L (98-107); POTASSIUM 3.8 MMOL/L (3.6-5.0); SODIUM 149 MMOL/L (135-145)
[2020-07-26 06:30] LABS: CALCIUM 10.7 MG/DL (8.5-10.1)
[2020-07-26 06:31] LABS: GLUCOSE 104 MG/DL (70-105); TOTAL PROTEIN 5.6 GM/DL (6.4-8.2)
[2020-07-26 06:32] LABS: CARBON DIOXIDE 24 MMOL/L (21-32)
[2020-07-26] MEDS: POTASSIUM CL 10MEQ/50ML IVPB 50 ML IV SCH (06:32)
[2020-07-26] MEDS: KCL 20 MEQ TAB (K-DUR) PO SCH (06:32)
[2020-07-26 06:33] LABS: BILIRUBIN,TOTAL 0.3 MG/DL (0.1-1.0)
[2020-07-26 06:34] LABS: PHOSPHORUS 3.1 MG/DL (2.3-4.7)
[2020-07-26 06:35] LABS: ALKALINE PHOSPHATASE 66 U/L (40-136); CREATININE SERUM 1.02 MG/DL (0.60-1.30); GFR ESTIMATED > 60
[2020-07-26 06:36] LABS: BUN/CREATININE RATIO 33
[2020-07-26 06:38] LABS: ALANINE AMINOTRANSFERASE 12 U/L (0-55); MAGNESIUM 2.2 MG/DL (1.6-2.4)
[2020-07-26] MEDS: MAGNESIUM 1 GM/100 ML IVPB 100 ML IV SCH (06:44)
[2020-07-26 08:00] VITALS: BP 187/74
[2020-07-26] MEDS: ARTIFICAL TEARS 0.4 ML UNIT DOSE (REFRESH PLUS) OU SCH ×2 (08:14→21:48)
[2020-07-26] MEDS: PANTOPRAZOLE 40 MG (PROTONIX) TAB PO SCH (08:26)
[2020-07-26] MEDS: LOSARTAN 100 MG (COZAAR) TABLET PO SCH (08:27)
[2020-07-26] MEDS: amLODIPine 5 MG (NORVASC) TAB PO SCH (08:27)
[2020-07-26] MEDS: SERTRALINE 50 MG (ZOLOFT) TABLET PO SCH (08:27)
[2020-07-26] MEDS: MEMANTINE 10 MG (NAMENDA) TABLET PO SCH ×2 (08:27→21:08)
[2020-07-26] MEDS ORDERED: [UNRECOGNIZED DRUG - OTHER] PO SCH (09:00)
[2020-07-26] MEDS ORDERED: CLOPIDOGREL 75 MG (PLAVIX) TABLET PO SCH (09:00)
[2020-07-26] MEDS: D5 1/2 NS W/KCL 20 MEQ/L 1,000 ML IV SCH ×3 (10:08→21:48)
[2020-07-26 12:00] VITALS: BP 179/78
--- NOTE | 2020-07-26 12:40 | NUR ---
"RD ASSESSMENT PMHx: HTN; CVA; GERD; dementia; PT INTERACTION: Note pt is currently in COVID isolation, per chart review. Note all diet information for nutrition consult for MST score is per Felipe RN, or per chart review. Felipe states current appetite does not appear good. Note PO intake 40% x1meal, per chart review. Felipe states no issues with nausea, vomiting, constipation, or diarrhea that he is aware of, and pt has not had a BM yet. Note pt not currently on bowel regimen per chart review. Felipe states pt does have some swallowing issues. Note pt currently on DYS1 Pureed diet, with [place] Thick Liquids, per chart review. Note recent 28# wt gain x4mon, per chart review. Note unable to conduct visual assessment d/t isolation precautions. Note BMI of 29.9 (Overweight BMI for age). While PO intake is fair, given wt hx, pt does not meet criteria for malnutrition per ASPEN guidelines. ABNORMAL NUTRITION-RELATED LAB VALUES LOW: Pro 5.6; alb 3.1; HIGH: Na 149; Cl 115; BUN 34; Ca 10.7; Est. kcal needs: 2682-1719 kcal | 20-25 kcal/kg Est. Pro needs: 80-100 g Pro | 0.8-1.0 g Pro/kg PES STATEMENT: Inadequate oral intake (NI-2.1) related to loss of appetite as evidenced by chart review, communication with RN, and PO intake 40% x1meal. INTERVENTION: Continue with current diet order of DYS1 Pureed diet. Pt may benefit from swallow evaluation to determine appropriate diet consistency. Add Ensure Enlive (vary) with meals TID. Provides 350 kcal and 20 g Pro per serving. Will continue to follow and reassess as pt needs, intake, and status change. Lila Stern, MS RD LD [phone] cell"
[2020-07-26] MEDS ORDERED: hydrALAZINE (APESOLINE) 20 MG/ML VIAL IV PRN (12:45)
[2020-07-26] MEDS: hydrALAZINE (APRESOLINE) 25 MG TAB PO SCH ×2 (14:36→21:08)
[2020-07-26 16:32] VITALS: BP 171/77
--- NOTE | 2020-07-26 16:40 | Progress Note - Hospitalist ---
Subjective HPI/CC On Admission Date Seen by Provider: Jul 26, 2020 Time Seen by Provider: 15:00 Hari Laguerre is an 89 year old male with PMH HTN, CVA, GERD, depression, dementia, chronic pain, who presented with altered mental status. He lives at a [facility]. He is unable to provide any history due to his encephalopathy. The history was obtained from the ER physician. Subjective/Events-last exam He is more responsive today. He opens his eyes and is mouthing words, but I am unable to understand him. Focused Exam Lactate Level 07/25/20 13:45: Lactic Acid Level 1.34 Objective Exam Vital Signs Vital Signs Date Time Temp Pulse Resp B/P (MAP) Pulse Ox O2 Delivery O2 Flow Rate FiO2 07/26/20 16:32 36.6 106 17 171/77 (108) 97 Nasal Cannula 3.00 Capillary Refill : Less Than 3 Seconds General Appearance: No Apparent Distress, Chronically ill Respiratory: Lungs Clear, Normal Breath Sounds, No Respiratory Distress Cardiovascular: Regular Rate, Rhythm, No Murmur Gastrointestinal: Normal Bowel Sounds, Soft Extremity: Normal Inspection, No Pedal Edema Neurologic/Psychiatric: Alert, Oriented x3, No Motor/Sensory Deficits, Normal Mood/Affect Skin: Normal Color, Warm/Dry Results/Procedures Lab Laboratory Tests 07/26/20 05:15 Patient resulted labs reviewed. Imaging: Reviewed Imaging Report Assessment/Plan Assessment and Plan Assess & Plan/Chief Complaint Sepsis due to UTI Septic encephalopathy Ureteral stone Hydronephrosis Blood cultures pending Urine culture with Proteus CT Abdomen revealed 4 mm obstructing stone Urology consulted, appreciate assistance Flomax Strain urine IV fluids Continue Rocephin HTN Losartan Add amlodipinie Add hydralazine IV Hydralazine as needed GERD Depression Dementia History of CVA Continue home meds Chronic pain Holding sedating meds DVT Prophylaxis: Lovenox Diagnosis/Problems Diagnosis/Problems (1) Sepsis due to urinary tract infection Status: Acute (2) Ureteral stone with hydronephrosis Status: Acute (3) Acute encephalopathy Status: Acute Clinical Quality Measures DVT/VTE Risk/Contraindication: Risk Factor Score Per Nursin RFS Level Per Nursing on Admit: 3=High MALORIE CHAPIN MD Jul 26, 2020 16:40
[2020-07-26] MEDS: cefTRIAXone FOR IV USE 2,000 MG in WATER (STERILE) FOR INJECTION 20 ML IV SCH (17:48)
[2020-07-26] MEDS: TAMSULOSIN 0.4 MG (FLOMAX) CAP PO SCH (18:11)
[2020-07-26 20:26] VITALS: BP 188/81
[2020-07-26 23:33] VITALS: BP 171/79
[2020-07-27 03:21] VITALS: BP 177/76
[2020-07-27 05:28] LABS: CHLORIDE 112 MMOL/L (98-107); POTASSIUM 4.1 MMOL/L (3.6-5.0); SODIUM 149 MMOL/L (135-145)
[2020-07-27 05:30] LABS: GLUCOSE 126 MG/DL (70-105)
[2020-07-27 05:31] LABS: CARBON DIOXIDE 28 MMOL/L (21-32)
[2020-07-27] MEDS: POTASSIUM CL 10MEQ/50ML IVPB 50 ML IV SCH (05:32)
[2020-07-27] MEDS: KCL 20 MEQ TAB (K-DUR) PO SCH (05:32)
[2020-07-27 05:34] LABS: CREATININE SERUM 0.92 MG/DL (0.60-1.30); GFR ESTIMATED > 60
[2020-07-27 05:35] LABS: BUN/CREATININE RATIO 29
[2020-07-27] MEDS: hydrALAZINE (APRESOLINE) 25 MG TAB PO SCH ×3 (06:06→21:39)
[2020-07-27] MEDS: MULTIVIT W/MINERALS TAB (THERAGRAN M) PO SCH (06:09)
[2020-07-27] MEDS: MAGNESIUM 1 GM/100 ML IVPB 100 ML IV SCH (07:22)
[2020-07-27 08:00] VITALS: BP 173/68
[2020-07-27] MEDS: ARTIFICAL TEARS 0.4 ML UNIT DOSE (REFRESH PLUS) OU SCH ×2 (09:00→21:39)
[2020-07-27] MEDS: amLODIPine 5 MG (NORVASC) TAB PO SCH (09:00)
[2020-07-27] MEDS: D5 1/2 NS W/KCL 20 MEQ/L 1,000 ML IV SCH ×2 (09:00→19:12)
[2020-07-27] MEDS: PANTOPRAZOLE 40 MG (PROTONIX) TAB PO SCH (09:00)
[2020-07-27] MEDS: MEMANTINE 10 MG (NAMENDA) TABLET PO SCH ×2 (09:00→21:42)
[2020-07-27] MEDS: SERTRALINE 50 MG (ZOLOFT) TABLET PO SCH (09:00)
[2020-07-27] MEDS: LOSARTAN 100 MG (COZAAR) TABLET PO SCH (09:00)
--- NOTE | 2020-07-27 09:58 | Diagnostic Imaging Report ---
Indication: Flank pain. Comparison: CT 07/25/2020. Discussion: Two views of the abdomen and pelvis were obtained. 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 The small stone within the right ureterovesical junction on CT is not seen by plain film, either obscured or passed. Suspect punctate nonobstructing left renal calculus measuring 2 mm. Nonobstructive bowel gas pattern. There is a small 2 to 3 mm calcific density projected over the right sacral alar which shows no correlate on CT and could represent retrograde migration of the right ureteral stone in the appropriate setting. Impression: 1. 2 mm nonobstructing left renal calculus. 2. 2-3 mm calcific density projected over the right sacral alar. The distal ureteral stone is not identified as seen on CT. Dictated by: Dictated on workstation # [id number]
--- NOTE | 2020-07-27 10:54 | Progress Note - Urology ---
Progress Note-Urology Progress Notes/Assess & Plan Progress/Assessment & Plan NO STONE PASSED. KUB INCONCLUSIVE. PLAN KEEP OFF LOVENOX, NON CONTRAST CT A &P 8AM TOMORROW, IF STONE STILL THERE PROCEED WITH OR. CONSENT ORDERED. NPO POST MIDNIGHT. CANCEL OR IF STONE PASSED Final Diagnosis RT DISTAL URETERAL STONE CHERYL WASHINGTON MD Jul 27, 2020 10:54
[2020-07-27 12:00] VITALS: BP 161/61
--- NOTE | 2020-07-27 12:00 | NUR ---
DR DIAS HERE, INSTRUCTED NURSE TO CALL CT AND SCHEDULE CT AT 0800 IN AM, NPO AT MIDNIGHT FOR CYSTOSCOPY IN AM, ADDITION TO SURGERY DONE
--- NOTE | 2020-07-27 12:13 | Progress Note ---
Subjective Date Seen by a Provider: Jul 27, 2020 Time Seen by a Provider: 12:08 Subjective/Events-last exam Fwup UTI with sepsis, septic encephalopathy, ureteral stone with hydronephrosis, GERD, HTN, dementia with depression, History of CVA. Patient resting in bed. Does not open eyes to voice but does grimace to abdominal palpation. Focused Exam Lactate Level 07/25/20 13:45: Lactic Acid Level 1.34 Objective Exam Vital Signs Date Time Temp Pulse Resp B/P (MAP) Pulse Ox O2 Delivery O2 Flow Rate FiO2 07/27/20 08:00 Nasal Cannula 3.00 07/27/20 08:00 35.9 73 16 173/68 (103) 98 Nasal Cannula 3.00 07/27/20 03:21 36.5 84 18 177/76 (109) 94 Nasal Cannula 3.00 07/26/20 23:33 36.8 86 17 171/79 (109) 97 Nasal Cannula 3.00 07/26/20 20:50 Nasal Cannula 3.00 07/26/20 20:26 36.7 89 16 188/81 (116) 99 Nasal Cannula 3.00 07/26/20 16:32 36.6 106 17 171/77 (108) 97 Nasal Cannula 3.00 07/26/20 15:32 Nasal Cannula 3.00 I & O 07/27/20 07:00 Intake Total 1820 ml Output Total 875 ml Balance 945 ml Capillary Refill : Less Than 3 Seconds General Appearance: Mild Distress (with abdominal palpation) Respiratory: Lungs Clear Cardiovascular: Regular Rate, Rhythm Gastrointestinal: normal bowel sounds, soft, tenderness Extremity: Non Tender, No Calf Tenderness, No Pedal Edema Neurologic/Psychiatric: Alert, Oriented x3 Skin: Warm/Dry Results Lab Laboratory Tests 07/27/20 04:10: Sodium Level 149H, Potassium Level 4.1, Chloride Level 112H, Carbon Dioxide L evel 28, Anion Gap 9, Blood Urea Nitrogen 27H, Creatinine 0.92, Estimat Glomerular Filtration Rate > 60, BUN/Creatinine Ratio 29, Glucose Level 126H, Calcium Level 10.0, Magnesium Level 1.9 Microbiology 07/25/20 Blood Culture - Preliminary, Resulted No growth 07/25/20 Urine Culture - Final, Complete Proteus mirabilis Assessment/Plan Assessment/Plan Assess & Plan/Chief Complaint 1. UTI with sepsis--on abx 2. Septic Encephalopathy--very lethargic today 3. Obstructing ureteral stone with hydronephrosis--urology planning repeat CT of abdomen/pelvis and then may need procedure if stone has not passed 4. Hypertension--stable 5. GERD--on protonix 4. Dementia with Depression--back on home meds Clinical Quality Measures DVT/VTE Risk/Contraindication: Risk Factor Score Per Nursin RFS Level Per Nursing on Admit: 3=High PETRA SNYDER DO Jul 27, 2020 12:12
[2020-07-27 16:00] VITALS: BP 165/70
--- NOTE | 2020-07-27 16:36 | NUR ---
FAMILY NOTIFIED OF CYSTOSCOPY WITH RIGHT URETEROSCOPY WITH STONE LITHOTRIPSY BASKET , STENT OR LITHOTOMY, DAUGHTER NANDA RIOS AND JUD PRINCE GAVE CONSENT FOR SURGERY WITH DR WASHINGTON
--- NOTE | 2020-07-27 16:45 | NUR ---
SON CALLED NURSE AND WANTED TO MAKE SURE DOCTOR KNEW HE HAD A KIDNEY STONE REMOVED ABOUT 5 YEARS AGO AT UROLOGY
[2020-07-27] MEDS: TAMSULOSIN 0.4 MG (FLOMAX) CAP PO SCH (17:37)
[2020-07-27] MEDS: cefTRIAXone FOR IV USE 2,000 MG in WATER (STERILE) FOR INJECTION 20 ML IV SCH (17:37)
[2020-07-27 20:00] VITALS: BP 165/81
[2020-07-28] VITALS (13 sets, daily range): BP systolic 139–174; BP diastolic 65–90
[2020-07-28 05:11] LABS: CHLORIDE 107 MMOL/L (98-107); POTASSIUM 3.4 MMOL/L (3.6-5.0); SODIUM 139 MMOL/L (135-145)
[2020-07-28 05:12] LABS: GLUCOSE 116 MG/DL (70-105)
[2020-07-28 05:14] LABS: CARBON DIOXIDE 25 MMOL/L (21-32)
[2020-07-28 05:16] LABS: CREATININE SERUM 0.76 MG/DL (0.60-1.30); GFR ESTIMATED > 60
[2020-07-28 05:17] LABS: BUN/CREATININE RATIO 24
[2020-07-28] MEDS: D5 1/2 NS W/KCL 20 MEQ/L 1,000 ML IV SCH ×2 (05:17→21:21)
[2020-07-28 05:19] LABS: MAGNESIUM 1.6 MG/DL (1.6-2.4)
[2020-07-28] MEDS: POTASSIUM CL 10MEQ/50ML IVPB 50 ML IV SCH ×4 (05:59→13:09)
[2020-07-28] MEDS: MAGNESIUM 1 GM/100 ML IVPB 100 ML IV SCH ×3 (05:59→07:48)
[2020-07-28] MEDS: hydrALAZINE (APRESOLINE) 25 MG TAB PO SCH ×3 (06:33→21:22)
[2020-07-28] MEDS: MULTIVIT W/MINERALS TAB (THERAGRAN M) PO SCH (06:33)
[2020-07-28] MEDS: KCL 20 MEQ TAB (K-DUR) PO SCH (06:36)
[2020-07-28] MEDS: SERTRALINE 50 MG (ZOLOFT) TABLET PO SCH (07:52)
[2020-07-28] MEDS: PANTOPRAZOLE 40 MG (PROTONIX) TAB PO SCH (07:52)
[2020-07-28] MEDS: MEMANTINE 10 MG (NAMENDA) TABLET PO SCH ×2 (07:52→20:10)
[2020-07-28] MEDS: LOSARTAN 100 MG (COZAAR) TABLET PO SCH (07:52)
[2020-07-28] MEDS: amLODIPine 5 MG (NORVASC) TAB PO SCH (07:52)
--- NOTE | 2020-07-28 07:53 | NUR ---
PT TO CT VIA BED
--- NOTE | 2020-07-28 08:38 | Diagnostic Imaging Report ---
PROCEDURE: CT urinary tract, rule out kidney stone. TECHNIQUE: Multiple contiguous axial images were obtained through the abdomen and pelvis without the use of intravenous contrast. Auto Exposure Controls were utilized during the CT exam to meet ALARA standards for radiation dose reduction. INDICATION: Follow-up right distal stone. Patient unable to give past medical history. COMPARISON: CT abdomen pelvis with IV contrast 07/25/2020. FINDINGS: Mild atelectasis in the lung bases. Cardiomegaly is partially visualized. Cholelithiasis without secondary findings of cholecystitis. Stable 0.4 cm renal stone in the right ureterovesicular junction resulting in moderate right hydronephrosis. There are also a couple 0.2 cm nonobstructing calyceal tip renal stones in both kidneys. Simple appearing cyst in the left kidney. The urinary bladder is decompressed by Parra catheter. The liver, pancreas, spleen, adrenals are negative on this noncontrast exam. Normal appendix. No free intraperitoneal air or fluid. No lymphadenopathy. No evidence of bowel obstruction. Bilateral fat-containing inguinal hernias. Anterior wedging of the T11 vertebral body resulting in approximately 20% height loss is stable. IMPRESSION: 1. Stable 0.4 cm renal stone in the right ureterovesicular junction resulting in moderate right hydronephrosis. 2. Additional chronic and incidental findings as above. Dictated by: Dictated on workstation # [id number]
--- NOTE | 2020-07-28 08:47 | Progress Note-Pre Operative ---
Pre-Operative Progress Note H&P Reviewed The H&P was reviewed, patient examined and no changes noted. Date Seen by Provider: Jul 28, 2020 Time Seen by Provider: 08:47 Date H&P Reviewed: Jul 28, 2020 Time H&P Reviewed: 08:47 Pre-Operative Diagnosis: RT DISTAL URETERAL STONE CHERYL WASHINGTON MD Jul 28, 2020 08:47
[2020-07-28] MEDS: ARTIFICAL TEARS 0.4 ML UNIT DOSE (REFRESH PLUS) OU SCH ×2 (08:49→20:10)
--- NOTE | 2020-07-28 09:00 | NUR ---
[facility] CALLED PER ANESTHESIA REQUEST IN REGARD TO LAST DOSE OF PLAVIX. PT RECEIVED MED ON 07/25/20 AT 0600. INFO GIVEN TO ANESTHESIA
[2020-07-28] MEDS ORDERED: LACTATED RINGERS 1,000 ML IV PRN (09:48)
[2020-07-28] MEDS ORDERED: fentaNYL INJECTION 100 MCG/2 ML AMP ONE (10:14)
[2020-07-28] MEDS ORDERED: SEVOFLURANE (ULTANE) 15 ML INHAL SOLN ONE (10:53)
[2020-07-28] MEDS ORDERED: NEOSTIGMINE 3 MG/3 ML VIAL ONE (10:53)
[2020-07-28] MEDS ORDERED: LIDOCAINE PF 2% 5 ML (XYLOCAINE) VIAL ONE (10:53)
[2020-07-28] MEDS ORDERED: proPOfol 200 MG/20 ML (DIPRIVAN) VIAL IV ONE (10:53)
[2020-07-28] MEDS ORDERED: ROCURONIUM 10 MG/ML 5 ML SYRINGE IV ONE (10:53)
[2020-07-28] MEDS ORDERED: GLYCOPYRROLATE 0.2 MG/ML (ROBINUL) 2 ML VIAL ONE (10:53)
[2020-07-28] MEDS ORDERED: ONDANSETRON 4 MG/2 ML (SDV) Z0FRAN ONE (10:53)
--- NOTE | 2020-07-28 10:59 | Progress Note-Post Operative ---
Post-Operative Progess Note Surgeon (s)/Regional Sales Director (s) Surgeon CHERYL WASHINGTON MD Regional Sales Director: NONE Pre-Operative Diagnosis RT DISTAL URETERAL STONE Post-Operative Diagnosis SAME Procedure & Operative Findings Date of Procedure 07/28/20 Procedure Performed/Findings CYSTOSCOPY, RT URETEROSCOPY WITH STONE BASKET Anesthesia Type GENERAL Estimated Blood Loss Estimated blood loss (mL): NONE Specimens/Packing Specimens Removed STONE Packing: NONE CHERYL WASHINGTON MD Jul 28, 2020 10:59
[2020-07-28] MEDS ORDERED: ONDANSETRON 4 MG/2 ML (SDV) Z0FRAN IVP PRN (11:15)
[2020-07-28] MEDS ORDERED: fentaNYL INJECTION 100 MCG/2 ML AMP IVP ONE (11:15)
--- NOTE | 2020-07-28 11:36 | Anesthesia-General Post-Op ---
General Patient Condition Mental Status/LOC: Same as Preop Cardiovascular: Satisfactory Nausea/Vomiting: Absent Respiratory: Satisfactory Pain: Controlled Complications: Absent Post Op Complications Complications None Follow Up Care/Instructions Patient Instructions None needed. Anesthesia/Patient Condition Patient Condition Patient is doing well, no complaints, not responding but is at preop baseline, stable vital signs, no apparent adverse anesthesia problems. TAMI SAMAYOA DO Jul 28, 2020 11:36
--- NOTE | 2020-07-28 12:03 | Progress Note ---
Subjective Date Seen by a Provider: Jul 28, 2020 Time Seen by a Provider: 11:57 Subjective/Events-last exam Fwup UTI with sepsis, septic encephalopathy, ureteral stone with hydronephrosis, GERD, HTN, dementia with depression, History of CVA. Patient just got back for ureteroscopy with stone basket on right. Focused Exam Lactate Level 07/25/20 13:45: Lactic Acid Level 1.34 Objective Exam Vital Signs Date Time Temp Pulse Resp B/P (MAP) Pulse Ox O2 Delivery O2 Flow Rate FiO2 07/28/20 11:40 18 143/75 (97) 93 Nasal Cannula 2 07/28/20 11:40 Nasal Cannula 2 07/28/20 11:30 18 139/74 (95) 93 OxyMask 3 07/28/20 11:28 OxyMask 3 07/28/20 11:22 OxyMask 6 07/28/20 11:20 18 143/65 (91) 95 OxyMask 6 07/28/20 11:15 OxyMask 6 07/28/20 11:10 18 151/72 (98) 94 OxyMask 6 07/28/20 10:59 36.8 20 147/90 (109) 95 OxyMask 6 07/28/20 10:59 OxyMask 6 07/28/20 08:00 Nasal Cannula 3.00 07/28/20 07:56 36.7 89 16 158/71 (100) Nasal Cannula 4.00 07/28/20 04:00 36.8 88 18 162/72 (102) 96 Nasal Cannula 4.00 07/28/20 00:39 36.8 86 18 162/70 (100) 97 Nasal Cannula 4.00 07/27/20 20:00 Nasal Cannula 3.00 07/27/20 20:00 37.0 99 18 165/81 (109) 98 Nasal Cannula 4.00 07/27/20 16:00 36.8 85 16 165/70 (101) 99 Nasal Cannula 4.00 07/27/20 12:00 36.7 84 16 161/61 (94) 100 Nasal Cannula 3.00 I & O 07/28/20 07:00 Intake Total 3820 ml Output Total 1675 ml Balance 2145 ml Capillary Refill : Less Than 3 SecondsLess Than 3 Seconds General Appearance: No Apparent Distress Respiratory: Lungs Clear Cardiovascular: Regular Rate, Rhythm Gastrointestinal: non tender, soft Extremity: Non Tender, No Calf Tenderness, No Pedal Edema Results Lab Laboratory Tests 07/28/20 04:40: Sodium Level 139, Potassium Level 3.4L, Chloride Level 107, Carbon Dioxide Level 25, Anion Gap 7, Blood Urea Nitrogen 18, Creatinine 0.76, Estimat Glomerular Filtration Rate > 60, BUN/Creatinine Ratio 24, Glucose Level 116H, Calcium Level 9.0, Magnesium Level 1.6 07/28/20 11:47: Microbiology 07/25/20 Blood Culture - Preliminary, Resulted No growth 07/25/20 Urine Culture - Final, Complete Proteus mirabilis Assessment/Plan Assessment/Plan Assess & Plan/Chief Complaint 1. UTI with sepsis--on abx 2. Septic Encephalopathy--drowsy from procedure 3. Obstructing ureteral stone with hydronephrosis--S/P ureteroscopy with stone basket on right 4. Hypertension--stable 5. GERD--on protonix 4. Dementia with Depression--back on home meds Clinical Quality Measures DVT/VTE Risk/Contraindication: Risk Factor Score Per Nursin RFS Level Per Nursing on Admit: 3=High PETRA SNYDER DO Jul 28, 2020 12:03
[2020-07-28] MEDS: cefTRIAXone FOR IV USE 2,000 MG in WATER (STERILE) FOR INJECTION 20 ML IV SCH (18:48)
[2020-07-28] MEDS: TAMSULOSIN 0.4 MG (FLOMAX) CAP PO SCH (18:48)
[2020-07-29 00:01] VITALS: BP 162/73
[2020-07-29 04:18] VITALS: BP 183/77
[2020-07-29 05:40] LABS: CHLORIDE 105 MMOL/L (98-107); POTASSIUM 4.2 MMOL/L (3.6-5.0); SODIUM 136 MMOL/L (135-145)
[2020-07-29 05:41] LABS: CALCIUM 8.8 MG/DL (8.5-10.1)
[2020-07-29 05:42] LABS: GLUCOSE 125 MG/DL (70-105)
[2020-07-29 05:43] LABS: CARBON DIOXIDE 23 MMOL/L (21-32)
[2020-07-29 05:46] LABS: BUN/CREATININE RATIO 20; CREATININE SERUM 0.76 MG/DL (0.60-1.30); GFR ESTIMATED > 60
[2020-07-29] MEDS: MAGNESIUM 1 GM/100 ML IVPB 100 ML IV SCH (06:04)
[2020-07-29] MEDS: D5 1/2 NS W/KCL 20 MEQ/L 1,000 ML IV SCH ×2 (06:05→09:17)
[2020-07-29] MEDS: KCL 20 MEQ TAB (K-DUR) PO SCH (06:05)
[2020-07-29] MEDS: hydrALAZINE (APRESOLINE) 25 MG TAB PO SCH ×3 (06:17→21:10)
[2020-07-29] MEDS: MULTIVIT W/MINERALS TAB (THERAGRAN M) PO SCH (06:17)
[2020-07-29 08:00] VITALS: BP 185/81
--- NOTE | 2020-07-29 08:50 | Progress Note ---
Subjective Subjective Date Seen by Provider: Jul 29, 2020 Time Seen by Provider: 08:55 PT IS AN 89 Y/O MALE WHO IS A CLINIC PATIENT OF DR. TORRES. THE PATIENT WAS ADMITTED TO THE HOSPITAL DUE TO UTI WITH SEPSIS SECONDARY TO URETERAL STONE WITH HYDRONEPHROSIS. THIS MORNING THE PATIENT IS SITTING UP IN BED LOOKING OUT THE WINDOW. HE DOES NOT COMPLAIN OF PAIN, IS MINIMALLY UNDERSTOOD WHEN QUESTIONS ARE ASKED, HE INTERMITTENTLY ANSWERS QUESTIONS, BUT WITH NON-SENSE WORDING. STAFF REPORTS THAT HE HAS BEEN WATCHING THE TRAINS OUT OF HIS WINDOWS. Review of Systems General: No Chills; Fatigue Pulmonary: No Dyspnea, No Cough Cardiovascular: No: Chest Pain, Palpitations Gastrointestinal: Abdominal Pain; No: Nausea Neurological: Weakness, Confusion (CHRONIC) All Other Systems Reviewed All Other Systems Reviewed: Yes Objective Exam Vital Signs Vital Signs - First Documented 07/25/20 11:41 Temp 36.5 Pulse 90 Resp 16 B/P (MAP) 131/60 (83) Pulse Ox 98 O2 Delivery Nasal Cannula O2 Flow Rate 3.00 Capillary Refill : Less Than 3 SecondsLess Than 3 Seconds General Appearance: No Apparent Distress, WD/WN Eyes: Bilateral Eye Normal Inspection, Bilateral Eye PERRL, Bilateral Eye EOMI HEENT: PERRL/EOMI, Pharynx Normal Neck: Normal Inspection, Supple Respiratory: Chest Non Tender, Lungs Clear, Normal Breath Sounds Cardiovascular: Regular Rate, Rhythm Gastrointestinal: Normal Bowel Sounds, Soft, Tenderness (IN LOWER ABDOMEN) Rectal: Deferred Back: Normal Inspection Extremity: Non Tender, No Calf Tenderness, No Pedal Edema Neurologic/Psychiatric: Alert, Oriented x3 Skin: Normal Color, Warm/Dry Lymphatic: No Adenopathy Results Lab Laboratory Tests 07/28/20 11:47: 07/29/20 05:10: Sodium Level 136, Potassium Level 4.2, Chloride Level 105, Carbon Dioxide Level 23, Anion Gap 8, Blood Urea Nitrogen 15, Creatinine 0.76, Estimat Glomerular Filtration Rate > 60, BUN/Creatinine Ratio 20, Glucose Level 125H, Calcium Level 8.8, Magnesium Level 2.0 Microbiology 07/27/20 MRSA Screen - Final, Complete MRSA not isolated 07/25/20 Blood Culture - Preliminary, Resulted No growth 07/25/20 Urine Culture - Final, Complete Proteus mirabilis Assessment/Plan Assessment/Plan Admission Dx SEPSIS DUE TO URINARY TRACT INFECTION URETERAL STONE HYDRONEPHROSIS HYPERTENSION GERD DEMENTIA PERIPHERAL NEUROPATHY Assessment and Plan SEPSIS DUE TO URINARY TRACT INFECTION WITH URETERAL STONE AND HYDRONEPHROSIS - PT IS STATUS POST STONE RETRIEVAL BY DR. WASHINGTON, HYDRONEPHROSIS IMPROVED, UTI - PROTEUS, BEING TREATED WITH ROCEPHIN. HYPERTENSION - HOME REGIMEN RESUMED. - BP STABLE GERD - RESUMED PPI DEMENTIA - ON NAMENDA WILL CONTINUE TREATMENT PERIPHERAL NEUROPATHY - ON GABAPENTIN OUTPATIENT, RESUME THERAPY ON DC. Problems: (1) Sepsis due to urinary tract infection Assessment & Plan: IMPROVED SYMPTOMS ON IV ANTIBIOTICS - CEFTRIAXONE (2) Ureteral stone with hydronephrosis Assessment & Plan: STATUS POST BASKET STONE RETRIEVAL BY DR. WASHINGTON. (3) Acute encephalopathy Assessment & Plan: IMPROVED AFTER IV ANTIBIOTICS INITIATED AND STONE RETRIEVED. Clinical Quality Measures DVT/VTE Risk/Contraindication: Risk Factor Score Per Nursin RFS Level Per Nursing on Admit: 3=High CHE JOYCE MD Jul 29, 2020 08:50
[2020-07-29] MEDS: ARTIFICAL TEARS 0.4 ML UNIT DOSE (REFRESH PLUS) OU SCH ×2 (09:17→21:11)
[2020-07-29] MEDS: SERTRALINE 50 MG (ZOLOFT) TABLET PO SCH (09:18)
[2020-07-29] MEDS: LOSARTAN 100 MG (COZAAR) TABLET PO SCH (09:18)
[2020-07-29] MEDS: amLODIPine 5 MG (NORVASC) TAB PO SCH (09:18)
[2020-07-29] MEDS: PANTOPRAZOLE 40 MG (PROTONIX) TAB PO SCH (09:18)
[2020-07-29] MEDS: MEMANTINE 10 MG (NAMENDA) TABLET PO SCH ×2 (09:18→21:10)
--- NOTE | 2020-07-29 10:45 | Progress Note - Urology ---
Progress Note-Urology Progress Notes/Assess & Plan Progress/Assessment & Plan RECOVERED WELL FROM OR. MAY DISCHARGE HERNANDEZ. WE WILL SEE PRN Final Diagnosis RT DISTAL URETERAL STONE (RESOLVED) CHERYL WASHINGTON MD Jul 29, 2020 10:45
[2020-07-29 12:54] VITALS: BP 167/78
[2020-07-29 16:00] VITALS: BP 172/64
[2020-07-29] MEDS: cefTRIAXone FOR IV USE 2,000 MG in WATER (STERILE) FOR INJECTION 20 ML IV SCH (17:36)
[2020-07-29] MEDS: TAMSULOSIN 0.4 MG (FLOMAX) CAP PO SCH (17:36)
[2020-07-29 20:10] VITALS: BP 153/70
[2020-07-30] VITALS: BP 166/72
[2020-07-30] MEDS: D5 1/2 NS W/KCL 20 MEQ/L 1,000 ML IV SCH (02:23)
[2020-07-30 04:00] VITALS: BP 146/67
[2020-07-30] MEDS: MAGNESIUM 1 GM/100 ML IVPB 100 ML IV SCH (06:00)
[2020-07-30] MEDS: hydrALAZINE (APRESOLINE) 25 MG TAB PO SCH ×3 (06:49→21:32)
[2020-07-30] MEDS: MULTIVIT W/MINERALS TAB (THERAGRAN M) PO SCH (06:49)
[2020-07-30] MEDS: POTASSIUM CL 10MEQ/50ML IVPB 50 ML IV SCH (06:53)
[2020-07-30] MEDS: KCL 20 MEQ TAB (K-DUR) PO SCH (06:53)
--- NOTE | 2020-07-30 06:59 | OPERATIVE REPORT ---
DATE OF SERVICE: 07/28/2020 PREOPERATIVE DIAGNOSIS: Right distal ureteral stone. POSTOPERATIVE DIAGNOSIS: Right distal ureteral stone. OPERATION PERFORMED: Cystoscopy, right ureteroscopy with stone basket. SURGEON: Teo Washington MD ANESTHESIA: General. COMPLICATIONS: None. DESCRIPTION OF PROCEDURE: Under satisfactory general anesthesia, the patient in lithotomy position, genitalia were prepped and draped in the usual sterile fashion. Cystoscope was introduced under vision. The anterior urethra was normal. The prostate was mildly enlarged with mild obstruction. The bladder was entered, revealed mild trabeculation. Ureteric orifices were normal in shape, size and configuration with clear efflux, very sluggish on the right side. Using the foroblique lens, I dilated the right ureteral orifice intramural portion to the level of the stone that was felt to be in the intramural part of the ureter to accommodate a 6.9 Indian semi-rigid ureteroscope, I visualized the stone that was disimpacted by the ureteroscope, so I went ahead and basketed with a 3-Indian Joiner basket and removed it completely. I went back with ureteroscope to confirm the integrity of the ureter and no more fragments or stones. I went to the level of the mid ureter and back again down. I removed the ureteroscope. The patient tolerated the procedure and anesthesia well and was sent to recovery room in stable condition. Job ID: [id number] DocumentID: [id number] Dictated Date: 07/28/2020 11:02:09 Oncology Specialist Date: 07/28/2020 15:44:45 Dictated By: TEO WASHINGTON MD
[2020-07-30 07:28] VITALS: BP 166/73
[2020-07-30] MEDS ORDERED: NS (IVPB) 250 ML IV ONE (08:00)
[2020-07-30] MEDS: D5 1/2 NS 1000 ML IV SOLUTION 1,000 ML IV SCH ×3 (08:18→23:11)
--- NOTE | 2020-07-30 09:00 | NUR ---
LAB CALLS AND REPORTS BLOOD GLUCOSE CRITICAL AT 688. PT IS NOT A DIABETIC. K+ HAD BEEN ELEVATED THIS AM. PT HAS D51/2 NS WITH 20 KCL RUNNING IN HIS RT ARM. ONLY BANDAID NOTED ON PT IS RT AC. LAB CALLED. ASSUMING BLOOD WAS DRAWN FROM THIS SITE ABOVE IV. REQUESTED REDRAW. DR. LESTER.
[2020-07-30] MEDS: SERTRALINE 50 MG (ZOLOFT) TABLET PO SCH (09:15)
[2020-07-30] MEDS: ARTIFICAL TEARS 0.4 ML UNIT DOSE (REFRESH PLUS) OU SCH ×2 (09:15→21:32)
[2020-07-30] MEDS: LOSARTAN 100 MG (COZAAR) TABLET PO SCH (09:15)
[2020-07-30] MEDS: PANTOPRAZOLE 40 MG (PROTONIX) TAB PO SCH (09:15)
[2020-07-30] MEDS: MEMANTINE 10 MG (NAMENDA) TABLET PO SCH ×2 (09:15→21:32)
[2020-07-30] MEDS: amLODIPine 5 MG (NORVASC) TAB PO SCH (09:15)
[2020-07-30 09:18] LABS: GLUCOSE 98 MG/DL (70-105)
[2020-07-30 09:28] LABS: BUN/CREATININE RATIO 15; CALCIUM 9.1 MG/DL (8.5-10.1); CARBON DIOXIDE 22 MMOL/L (21-32); CHLORIDE 107 MMOL/L (98-107); CREATININE SERUM 0.72 MG/DL (0.60-1.30); GFR ESTIMATED > 60; MAGNESIUM 2.1 MG/DL (1.6-2.4); POTASSIUM 3.7 MMOL/L (3.6-5.0); SODIUM 139 MMOL/L (135-145)
--- NOTE | 2020-07-30 10:30 | NUR ---
REPEAT LABS NORMAL. DR. JOYCE AWARE.
[2020-07-30 11:09] VITALS: BP 150/69
--- NOTE | 2020-07-30 11:59 | Progress Note ---
Subjective Subjective Date Seen by Provider: Jul 30, 2020 Time Seen by Provider: 09:00 PT IS AN 89 Y/O MALE WHO IS A CLINIC PATIENT OF DR. TORRES. THE PATIENT WAS ADMITTED TO THE HOSPITAL DUE TO UTI WITH SEPSIS SECONDARY TO URETERAL STONE WITH HYDRONEPHROSIS. THIS MORNING THE PATIENT IS SITTING UP IN BED LOOKING OUT THE WINDOW. HE WAS PRETTY GROGGY THIS MORNING. Review of Systems General: No Chills; Fatigue Pulmonary: No Dyspnea, No Cough Cardiovascular: No: Chest Pain, Palpitations Gastrointestinal: Abdominal Pain; No: Nausea Neurological: Weakness, Confusion (CHRONIC) All Other Systems Reviewed All Other Systems Reviewed: Yes Objective Exam Vital Signs Vital Signs - First Documented 07/25/20 11:41 Temp 36.5 Pulse 90 Resp 16 B/P (MAP) 131/60 (83) Pulse Ox 98 O2 Delivery Nasal Cannula O2 Flow Rate 3.00 Capillary Refill : Less Than 3 SecondsLess Than 3 Seconds General Appearance: No Apparent Distress, WD/WN Eyes: Bilateral Eye Normal Inspection, Bilateral Eye PERRL, Bilateral Eye EOMI HEENT: PERRL/EOMI, Pharynx Normal Neck: Normal Inspection, Supple Respiratory: Chest Non Tender, Lungs Clear, Normal Breath Sounds Cardiovascular: Regular Rate, Rhythm Gastrointestinal: Normal Bowel Sounds, Soft, Tenderness (IN LOWER ABDOMEN) Rectal: Deferred Back: Normal Inspection Extremity: Non Tender, No Calf Tenderness, No Pedal Edema Neurologic/Psychiatric: Alert, Oriented x3 Skin: Normal Color, Warm/Dry Lymphatic: No Adenopathy Results Lab Laboratory Tests 07/30/20 05:47: Sodium Level 139, Potassium Level 3.7, Chloride Level 107, Carbon Dioxide Level 22, Anion Gap 10, Blood Urea Nitrogen 11, Creatinine 0.72, Estimat Glomerular Filtration Rate > 60, BUN/Creatinine Ratio 15, Glucose Level 98, Calcium Level 9.1, Magnesium Level 2.1 Microbiology 07/27/20 MRSA Screen - Final, Complete MRSA not isolated 07/25/20 Blood Culture - Preliminary, Resulted No growth 07/25/20 Urine Culture - Final, Complete Proteus mirabilis Assessment/Plan Assessment/Plan Admission Dx SEPSIS DUE TO URINARY TRACT INFECTION URETERAL STONE HYDRONEPHROSIS HYPERTENSION GERD DEMENTIA PERIPHERAL NEUROPATHY Assessment and Plan SEPSIS DUE TO URINARY TRACT INFECTION WITH URETERAL STONE AND HYDRONEPHROSIS - PT IS STATUS POST STONE RETRIEVAL BY DR. WASHINGTON, HYDRONEPHROSIS IMPROVED, UTI - PROTEUS, BEING TREATED WITH ROCEPHIN. HYPERTENSION - HOME REGIMEN RESUMED. - BP STABLE GERD - RESUMED PPI DEMENTIA - ON NAMENDA WILL CONTINUE TREATMENT PERIPHERAL NEUROPATHY - ON GABAPENTIN OUTPATIENT, RESUME THERAPY ON DC. Problems: (1) Sepsis due to urinary tract infection Assessment & Plan: IMPROVED SYMPTOMS ON IV ANTIBIOTICS - CEFTRIAXONE (2) Ureteral stone with hydronephrosis Assessment & Plan: STATUS POST BASKET STONE RETRIEVAL BY DR. WASHINGTON. (3) Acute encephalopathy Assessment & Plan: IMPROVED AFTER IV ANTIBIOTICS INITIATED AND STONE RETRIEVED. Admission Dx SEPSIS DUE TO URINARY TRACT INFECTION URETERAL STONE HYDRONEPHROSIS HYPERTENSION GERD DEMENTIA PERIPHERAL NEUROPATHY Clinical Quality Measures Admission Status Admission Dx SEPSIS DUE TO URINARY TRACT INFECTION URETERAL STONE HYDRONEPHROSIS HYPERTENSION GERD DEMENTIA PERIPHERAL NEUROPATHY DVT/VTE Risk/Contraindication: Risk Factor Score Per Nursin RFS Level Per Nursing on Admit: 3=High CHE JOYCE MD Jul 30, 2020 11:59
[2020-07-30 15:34] VITALS: BP 159/68
[2020-07-30] MEDS: TAMSULOSIN 0.4 MG (FLOMAX) CAP PO SCH (17:05)
--- NOTE | 2020-07-30 18:41 | NUR ---
FED ICE CREAM AND BRENDA WELL WITHOUT SIGNS OF ASPIRATION. WHEN ATTEMPTED OTHER FOODS, SPIT AT [facility].
[2020-07-30 20:30] VITALS: BP 139/63
--- NOTE | 2020-07-30 21:00 | NUR ---
Patient refused to take meds, had attempted to give in applesauce.
[2020-07-31 00:13] VITALS: BP 158/70
[2020-07-31] MEDS: hydrALAZINE (APRESOLINE) 25 MG TAB PO SCH ×2 (00:16→06:42)
[2020-07-31] MEDS: ARTIFICAL TEARS 0.4 ML UNIT DOSE (REFRESH PLUS) OU SCH ×2 (00:16→10:28)
[2020-07-31] MEDS: MEMANTINE 10 MG (NAMENDA) TABLET PO SCH ×2 (00:16→10:29)
[2020-07-31 04:00] VITALS: BP 159/69
[2020-07-31 06:13] LABS: CHLORIDE 109 MMOL/L (98-107); POTASSIUM 3.6 MMOL/L (3.6-5.0); SODIUM 140 MMOL/L (135-145)
[2020-07-31 06:15] LABS: CALCIUM 9.3 MG/DL (8.5-10.1); GLUCOSE 114 MG/DL (70-105)
[2020-07-31] MEDS: POTASSIUM CL 10MEQ/50ML IVPB 50 ML IV SCH ×3 (06:16→11:39)
[2020-07-31 06:17] LABS: CARBON DIOXIDE 23 MMOL/L (21-32)
[2020-07-31] MEDS: KCL 20 MEQ TAB (K-DUR) PO SCH (06:17)
[2020-07-31 06:19] LABS: CREATININE SERUM 0.74 MG/DL (0.60-1.30); GFR ESTIMATED > 60
[2020-07-31 06:20] LABS: BUN/CREATININE RATIO 12
[2020-07-31] MEDS: MULTIVIT W/MINERALS TAB (THERAGRAN M) PO SCH (06:42)
[2020-07-31] MEDS: MAGNESIUM 1 GM/100 ML IVPB 100 ML IV SCH (06:43)
[2020-07-31 08:00] VITALS: BP 151/67
--- NOTE | 2020-07-31 08:48 | Discharge Summary ---
Diagnosis/Chief Complaint Date of Admission Jul 25, 2020 at 15:50 Date of Discharge Discharge Date: Jul 31, 2020 Admission Diagnosis Admission Diagnosis SEPSIS DUE TO URINARY TRACT INFECTION URETERAL STONE ACUTE ENCEPHALOPATHY HYDRONEPHROSIS HYPERTENSION GERD DEMENTIA PERIPHERAL NEUROPATHY Discharge Diagnosis SEPSIS DUE TO URINARY TRACT INFECTION URETERAL STONE HYDRONEPHROSIS HYPERTENSION GERD DEMENTIA PERIPHERAL NEUROPATHY ACUTE ENCEPHALOPATHY Discharge Summary Discharge Physical Examination Allergies: Coded Allergies: acetaminophen (Verified Allergy, Unknown, 06/15/19) celecoxib (Verified Allergy, Unknown, 06/15/19) codeine (Verified Allergy, Unknown, 06/15/19) Vitals & I&Os Vital Signs Date Time Temp Pulse Resp B/P (MAP) Pulse Ox O2 Delivery O2 Flow Rate FiO2 07/31/20 04:00 36.6 85 20 159/69 (99) 94 Room Air 07/29/20 20:45 2.00 Hospital Course SEPSIS DUE TO URINARY TRACT INFECTION URETERAL STONE HYDRONEPHROSIS HYPERTENSION GERD DEMENTIA PERIPHERAL NEUROPATHY Assessment and Plan SEPSIS DUE TO URINARY TRACT INFECTION WITH URETERAL STONE AND HYDRONEPHROSIS - PT IS STATUS POST STONE RETRIEVAL BY DR. WASHINGTON, HYDRONEPHROSIS IMPROVED, UTI - PROTEUS, BEING TREATED WITH ROCEPHIN. HYPERTENSION - HOME REGIMEN RESUMED. - BP STABLE GERD - RESUMED PPI DEMENTIA - ON NAMENDA WILL CONTINUE TREATMENT PERIPHERAL NEUROPATHY - ON GABAPENTIN OUTPATIENT, RESUME THERAPY ON DC. Problems: (1) Sepsis due to urinary tract infection Assessment & Plan: IMPROVED SYMPTOMS ON IV ANTIBIOTICS - CEFTRIAXONE (2) Ureteral stone with hydronephrosis Assessment & Plan: STATUS POST BASKET STONE RETRIEVAL BY DR. WASHINGTON. (3) Acute encephalopathy Pending Labs Laboratory Tests 07/31/20 05:45: Sodium Level 140, Potassium Level 3.6, Chloride Level 109, Carbon Dioxide Level 23, Anion Gap 8, Blood Urea Nitrogen 9, Creatinine 0.74, Estimat Glomerular Filtration Rate > 60, BUN/Creatinine Ratio 12, Glucose Level 114, Calcium Level 9.3, Magnesium Level 2.0 Discharge Instructions to patient/family Please see electronic discharge instructions given to patient. Discharge Medications Reviewed and agree with Discharge Medication list on patient's Discharge Instruction sheet Clinical Quality Measures DVT/VTE Risk/Contraindication: Risk Factor Score Per Nursin RFS Level Per Nursing on Admit: 3=High CHE JOYCE MD Jul 31, 2020 08:48
[2020-07-31] MEDS ORDERED: LACT1CAP8 PO (09:06)
[2020-07-31] MEDS ORDERED: AMOX-358 PO (09:06)
[2020-07-31] MEDS ORDERED: HYDR-3923 PO (09:06)
--- NOTE | 2020-07-31 09:07 | Discharge Inst-Skilled Nursing ---
Discharge Inst-Skilled NF Reconcile Patient Problems Problems Reviewed?: Yes Patient Instructions Patient Problems: UTI SEPSIS DEMENTIA CHRONIC CONSTIPATION URETERAL STONES Goal: IMPROVED STRENGTH Consult/Follow Up/Orders Follow Up Appt.: PRIMARY CARE PHYSICIAN - - 1-2 WKS FROM [place] Skilled NF Admit to: [facility] Certification (SNF) I certify that SNF services are required to be given on an inpatient basis because of the above named patient's need for long-term care on a continuing basis for the conditions(s) for which he/she was receiving inpatient hospital services prior to his/her transfer to the SNF. Correction Facility Order: Nursing Services, Stone Setter Apprentice-Evaluate & Treat, Physical Therapy-Evaluate & Treat, Speech Language-Evaluate & Treat Oxygen Delivery Method: Room Air Discharge Diet: Regular Diet Daily Activity as Tolerated: Yes Resuscitation Status: Do Not Resuscitate New & Resume Previous Orders Che Larsen Jul 31, 2020 09:06 CHE LARSEN MD Jul 31, 2020 09:07
--- NOTE | 2020-07-31 09:44 | NUR ---
THIS RN ATTEMPTED TO GIVE PT MORNING MEDICATIONS CRUSHED IN APPLE SAUCE, PT REFUSING TO TAKE.
[2020-07-31] MEDS ORDERED: NS IV 500 ML 500 ML ONE (10:21)
[2020-07-31] MEDS: LOSARTAN 100 MG (COZAAR) TABLET PO SCH (10:28)
[2020-07-31] MEDS: amLODIPine 5 MG (NORVASC) TAB PO SCH (10:29)
[2020-07-31] MEDS: SERTRALINE 50 MG (ZOLOFT) TABLET PO SCH (10:29)
[2020-07-31] MEDS: PANTOPRAZOLE 40 MG (PROTONIX) TAB PO SCH (10:29)
[2020-07-31] MEDS: D5 1/2 NS 1000 ML IV SOLUTION 1,000 ML IV SCH (11:39)
[2020-07-31 12:00] VITALS: BP 145/70
== END 2020-07-31 12:30 | DRG 853 ==
LOC: EDUNIT# 11:27 → ER FS 11:28 → 4TH 15:50
PROVIDERS: ADMIT Internal Medicine; ATTEND Family Medicine
PROC: 0TC68ZZ Extirpation of Matter from Right Ureter, Via Natural or Artificial Opening Endoscopic (ICD-10-PCS; principal; 2020-07-28 10:39)
DX: A41.9 Sepsis, unspecified organism (principal); G93.41 Metabolic encephalopathy; N39.0 Urinary tract infection, site not specified; I69.354 Hemiplegia and hemiparesis following cerebral infarction affecting left non-dominant side; N13.6 Pyonephrosis; R65.20 Severe sepsis without septic shock; I10 Essential (primary) hypertension; Z66 Do not resuscitate; Z20.828 Contact with and (suspected) exposure to other viral communicable diseases; K21.9 Gastro-esophageal reflux disease without esophagitis; G89.29 Other chronic pain; F32.9 Major depressive disorder, single episode, unspecified; F41.9 Anxiety disorder, unspecified; R53.83 Other fatigue; F03.90 Unspecified dementia, unspecified severity, without behavioral disturbance, psychotic disturbance, mood disturbance, and anxiety; G62.9 Polyneuropathy, unspecified
CPT/HCPCS: 36415; 51702; 70450; 71045; 74018; 74176; 74177; 76000; 80048; 80053; 81000; 82140; 82962; 83605; 83690; 83735; 84100; 84145; 84484; 85007; 85025; 85027; 87040; 87077; 87081; 87088; 87186; 87635; 88300; 93005; 94760